=== PATIENT | female | born 1935 | race Caucasian/White ===

== ENCOUNTER 2016-09-18 16:46 | Inpatient (IN) ==
[2016-09-18] MEDS ORDERED: DILAUDID IV PRN (19:37)
[2016-09-18] MEDS ORDERED: NS 1,000 ML IV SCH (19:45)
[2016-09-18] MEDS ORDERED: LOVENOX SUBQ SCH (19:45)
--- NOTE | 2016-09-18 22:40 | HISTORY AND PHYSICAL ---
CHIEF COMPLAINT: Right upper quadrant pain since Saturday. Not able to the eat. HISTORY OF PRESENT ILLNESS: She is a 81-year-old white female who was seen in my office today with a 3-day history of above symptoms. Pain is right upper quadrant, nausea, low-grade fever, low blood pressure. Upon workup in my office, flat/upright of the abdomen with chest, normal chest, scoliosis towards right side, constipation. No free air under the diaphragm. LFTs, amylase, CBC were normal. Admitted to the hospital for impending dehydration, hypovolemia and rule out gallbladder disease. Patient is tender, but no signs of peritonitis, guarding or rigidity noted. As a result, a hospital admission was warranted. PAST MEDICAL HISTORY: CAD, status post bare metal stent circumflex artery, hypertension, hyperlipidemia, osteoporosis, acid reflux disease, rheumatoid arthritis, atrophic vaginitis, history of shingles in the right T4 dermatomal distribution. PAST SURGICAL HISTORY: Hysterectomy. Cardiac cath in 2013, stable. Hip replacement on the right side. MEDICATIONS: Hydrochlorothiazide 50 mg daily. Lasix as needed. Neurontin 300 daily. Norvasc 10 daily. Plavix 75 daily. Prednisone 5 daily. Prinivil 10 mg daily. Protonix 40 daily. Toprol 25 daily. Zocor 20 daily. Zyrtec 10 daily. ALLERGIES: Codeine, sulfa drugs. SOCIAL HISTORY: Single. . 3 children. Lives in [place]. No smoking. No alcohol. Retired from tool machine set up operator. FAMILY HISTORY: Father of leukemia at 48. Mom of [place] at 59. HEALTH MAINTENANCE: Flu vaccine 2009, pneumococcal vaccine 2009, mammography , DEXA scan 2008, colonoscopy 07/2016. REVIEW OF SYSTEMS: HEENT: No headache, no vision problem. No earache. No sore throat. Neck: No goiter. No lymphadenopathy. No bruit. Cardiopulmonary: No chest pain, shortness of breath, PND, orthopnea. GI: Right upper quadrant pain, nausea. Last BM Saturday. No bleeding per rectum. Recent colonoscopy by Dr. Holm, 2 polyps were taken out. : No history of hesitancy, frequency. No swelling of feet. No joint pains. Neurologic: No focal symptoms or weakness. PHYSICAL EXAMINATION: VITAL SIGNS: Fever in my office 101, tachycardic, blood pressure is 100/40, not able to walk, in wheelchair, 5 feet 2, 126 pounds. HEENT: Atraumatic, normocephalic. No anemia, no cyanosis. No jaundice. TMs are normal. NECK: Supple. No lymphadenopathy. No goiter. CHEST: Bilateral air entry. No rales, no wheezing. HEART: Sounds are regular. ABDOMEN: Belly is soft, nontender. Good bowel sounds. No masses palpable. No signs of guarding or rigidity in the right upper quadrant. RECTAL: Deferred. EXTREMITIES: No peripheral edema, cyanosis. NEUROLOGIC: No obvious neurological deficits. INVESTIGATIONS: CBC is normal. SMA7 is normal. LFTs were normal. Amylase is normal. Flat/upright of the abdomen, chest, no free air under the diaphragm. ASSESSMENT AND PLAN: 1. A 81-year-old white female, admitted to the hospital with right upper quadrant pain, nausea and vomiting suspicious for gallbladder disease. Will be NPO after midnight. Ultrasound of the abdomen. If it is negative, consider HIDA scan and followed by CT. 2. Coronary artery disease, with stent. Follow up on EKG and cardiac enzymes. 3. Prophylaxis with Lovenox and Protonix respectively. 4. Symptomatic treatment of nausea with Zofran and hydromorphone for pain. Continue IV fluids. Based on these tests, further recommendations will be followed. 5. We will slowly reconcile the home medicines once her gastrointestinal system gets better. cc: Rick Polanco MD MTDD
[2016-09-18] MEDS: ZOFRAN IV PRN (23:30)
[2016-09-18] MEDS: PROTONIX IV SCH (23:30)
[2016-09-18] MEDS: LEVAQUIN 500 MG/D5W 500 MG/100 ML IVPB IV SCH (23:31)
[2016-09-19 05:44] LABS: MANUAL DIFF NEEDED? NO
[2016-09-19 05:54] LABS: BASO% 0.1 % (0.0-0.8); EOS# 0.16 X1000 (0.0-0.7); HEMOGLOBIN 12.5 g/dL (12.0-16.0); LYMPH# 1.28 X1000 (1.2-3.4); LYMPH% 16.3 % (20.5-51.1); MCHC 33.8 g/dL (33-37); MCV 91.8 FL (81-99); MONO# 0.66 X1000 (0.11-0.59); MONO% 8.4 % (1.7-9.3); MPV 12.9 FL (7.4-10.4); NEUT% 73.2 % (42.2-75.2); PLT 84 X1000 (130-400); RBC 4.03 XMIL (4.2-5.4)
[2016-09-19 06:28] LABS: CALCIUM 8.4 mg/dL (8.8-10.2); TOTAL BILIRUBIN 0.48 mg/dL (0.20-1.00); TOTAL PROTEIN 6.3 g/dL (6.3-8.3)
--- NOTE | 2016-09-19 07:04 | EKG Report ---
Test Performed on : 09/19/2016 06:04:31 AM Test Reason : cp Blood Pressure : / mmHG Vent. Rate : 095 BPM Atrial Rate : 095 BPM P-R Int : 136 ms QRS Dur : 072 ms QT Int : 326 ms P-R-T Axes : 075 -41 060 degrees QTc Int : 409 ms Normal sinus rhythm. Left axis deviation Low voltage QRS Inferior infarct (cited on or before 24-SEP-2013) Cannot rule out Anterior infarct , age undetermined Abnormal ECG When compared with ECG of 24-SEP-2013 17:51, Vent. rate has increased BY 32 BPM Inverted T waves have replaced nonspecific T wave abnormality in Anterior leads T wave inversion in V1-V2-V3 is new - clinical correlation is recommended cannot r/o ischemia mediat ed Confirmed by Lonnie Contreras DO ([id number]) on 09/22/2016 7:52:49 PM
--- NOTE | 2016-09-19 08:17 | Diag Imaging Result Doc PS360 ---
US ABDOMEN-COMPLETE - 09/19/2016 INDICATION: Right upper quadrant pain COMPARISON: None FINDINGS: The gallbladder is clear. There is moderate fatty change of the liver. Common bile duct measures 4 mm. Sonographic Reese sign is negative. The pancreas, spleen, and both kidneys are normal. Aorta, IVC, and main portal vein are patent. IMPRESSION: Fatty liver. Clear gallbladder. Electronically signed by Christian Celis 09/19/2016 8:14 AM
--- NOTE | 2016-09-19 11:45 | Diag Imaging Result Doc PS360 ---
HIDA SCAN W/ EJECTION FRACTION - 09/19/2016 INDICATION: abdominal bloating COMPARISON: None FINDINGS: 5.4 millicuries of Choletec was administered. There is normal uptake and clearance by the liver. There is normal excretion into the gallbladder and small bowel. A fatty meal was given. The gallbladder ejection fraction is 5%. IMPRESSION: Severely subnormal gallbladder ejection fraction compatible with chronic cholecystitis. An abnormally low ejection fraction (less than 35%) can be present in patients without gallbladder dyskinesis or chronic cholelithiasis to have other medical conditions. These include but are not limited to, patients with diabetic mellitus, irritable bowel syndrome, , gastroenteritis. peptic ulcer disease, and patients receiving morphine or nifedipine. Electronically signed by Christian Celis 09/19/2016 11:42 AM
[2016-09-19] MEDS: ZOFRAN IV PRN ×2 (12:27→13:20)
[2016-09-19] MEDS ORDERED: DIPRIVAN 1% ONE (17:09)
[2016-09-19] MEDS ORDERED: XYLOCAINE-MPF 2% ONE (17:10)
[2016-09-19] MEDS ORDERED: LR 1,000 ML ONE (17:42)
[2016-09-19] MEDS ORDERED: SODIUM CHLORIDE 0.9% ONE (17:42)
[2016-09-19] MEDS ORDERED: SENSORCAINE 0.25%/EPI 1:200,000 ONE (17:42)
[2016-09-19] MEDS ORDERED: KETAMINE ONE (17:51)
[2016-09-19] MEDS ORDERED: OFIRMEV 1000 MG/ISOTONIC SOLN 1,000 MG/100 ML BOTTLE ONE (18:03)
[2016-09-19] MEDS ORDERED: NEOSTIGMINE ONE (18:22)
[2016-09-19] MEDS ORDERED: ROBINUL ONE (18:22)
[2016-09-19] MEDS ORDERED: MORPHINE ONE (18:52)
[2016-09-19] MEDS ORDERED: D5 1/2 NS 1,000 ML ONE (19:09)
[2016-09-19] MEDS ORDERED: ZOFRAN IV PRN (19:15)
[2016-09-19] MEDS ORDERED: ZOFRAN PO PRN (19:16)
[2016-09-19] MEDS: SODIUM CHLORIDE 0.9% INJ SCH (20:53)
[2016-09-19] MEDS: PROTONIX IV SCH (20:53)
[2016-09-19] MEDS: LEVAQUIN 500 MG/D5W 500 MG/100 ML IVPB IV SCH (20:53)
[2016-09-19] MEDS: PERIDEX MT SCH (20:54)
[2016-09-19] MEDS: D5 1/2 NS 1,000 ML IV SCH (20:54)
--- NOTE | 2016-09-19 22:45 | PROGRESS NOTE ---
DATE: 09/19/2016 SUBJECTIVE: Patient complains of right upper quadrant pain. Nausea slightly improved. REVIEW OF SYSTEMS: Upper abdominal pain, nausea, and no evidence of rashes noted. PHYSICAL EXAMINATION: Vital Signs: Temperature 102. Tachycardic. I's and O' s were even. HEENT: Within normal limits. Neck: Supple. Chest: Clear to auscultation. Heart: Sounds are regular. Abdomen: Belly is soft, slightly tender. No signs of peritonitis. No peripheral edema or cyanosis. No obvious neurological deficits. INVESTIGATIONS: CBC is normal. SMA 7 is normal. LFTs are normal. Cardiac enzymes are normal. ProBNP 4000. Amylase and lipase were normal. ASSESSMENT AND PLAN: 1. Right upper quadrant pain, fever, nausea, impending dehydration. Suspicious for gallbladder disease. Ultrasound is negative, Scheduled for a HIDA scan. 2. HIDA scan was reported abnormally low ejection fraction, suspicious for acalculous cholecystitis. Surgical consult. 3. Deep venous thrombosis prophylaxis with Lovenox. 4. Gastrointestinal prophylaxis with Protonix. 5. Continue IV antibiotics. 6. Discussed with the patient and the family members, as well as Dr. John Peguero. LEVEL OF DOCUMENTATION: 25 minutes. cc: Rick Polanco MD MTDD
[2016-09-19] MEDS: MORPHINE IV PRN (23:57)
--- NOTE | 2016-09-20 03:56 | OPERATIVE NOTE ---
PROCEDURE DATE: 09/19/2016 PREOPERATIVE DIAGNOSIS: Chronic cholecystitis with low HIDA scan, 5%. PROCEDURES: Laparoscopic cholecystectomy, attempted cholangiogram. PROCEDURE IN DETAIL: Patient brought to the operating room after satisfactory induction of IV and endotracheal anesthesia, athrombic TEDs were placed. Her abdomen was broadly prepped and draped in the appropriate manner for laparoscopy. Initially, the infraumbilical area was infiltrated with 0.25% Marcaine with epinephrine. Dissection was taken sharply down through skin and subcutaneous tissue. Fascia was tacked with 0 Surgilon and incised. Under direct visualization, a Mook trocar was placed. The abdomen was insufflated to 3.5 L of carbon dioxide. Again, after infiltration with Marcaine and epinephrine, one 10 and two 5 mm trocars were placed. The patient was repositioned. The gallbladder was seen to be flaccid and appeared to be necrotic. It was grasped and retracted superiorly. The hilar structures were dissected. The cystic duct was skeletonized, doubly clipped and divided. The cystic artery was skeletonized, doubly clipped and divided. Attempted cystic duct cholangiogram was unsuccessful secondary to the tiny size of the duct. The duct was subsequently doubly clipped and divided and the gallbladder was dissected from the liver bed with the use of the monopolar scissors. On completion, it was freed up, placed in an EndoCatch bag and removed. Reinspection of the liver bed revealed some tiny bleeding points that were controlled by electrocautery or Surgicel gauze. The subhepatic and subphrenic spaces were subsequently aspirated free of the small amount of bile and blood. All trocars were removed after abdominal deflation. The subumbilical incision underwent fascial closures of 0 Surgilon. All skin incisions were closed with subcuticular 4-0 Vicryl. Steri-Strips, Telfa, and OpSite were applied. The patient was awakened and extubated in the operating room and transferred to recovery. ESTIMATED BLOOD LOSS: Around 5 mL. cc: MD Rick Downey MD
[2016-09-20 06:09] LABS: MANUAL DIFF NEEDED? NO
--- NOTE | 2016-09-20 06:09 | EKG Report ---
Test Performed on : 09/20/2016 05:27:51 AM Test Reason : post op eval Blood Pressure : / mmHG Vent. Rate : 091 BPM Atrial Rate : 091 BPM P-R Int : 130 ms QRS Dur : 076 ms QT Int : 352 ms P-R-T Axes : 014 -48 080 degrees QTc Int : 432 ms Normal sinus rhythm. Left axis deviation Low voltage QRS Inferior infarct (cited on or before 24-SEP-2013) Possible Anterolateral infarct (cited on or before 24-SEP-2013) Abnormal ECG When compared with ECG of 19-SEP-2016 06:04, (Unconfirmed) Persistant anterior-septal T wave inversion - no change since 09/19/2016 Clinical Correlation advised Confirmed by Lonnie Contreras DO ([id number]) on 09/23/2016 9:54:53 AM
[2016-09-20] MEDS ORDERED: HYDROCHLOROTHIAZIDE PO PRN (06:29)
[2016-09-20] MEDS ORDERED: NITROGLYCERIN SL PRN (06:29)
[2016-09-20] MEDS ORDERED: NORCO-10 PO PRN (06:32)
[2016-09-20 06:34] LABS: BASO% 0.1 % (0.0-0.8); EOS# 0.14 X1000 (0.0-0.7); EOS% 2.1 % (0.0-10.0); HEMATOCRIT 36.7 % (37.0-47.0); HEMOGLOBIN 12.3 g/dL (12.0-16.0); IMM GRAN# 0.02 X1000 (0.0-0.04); IMM GRAN% 0.3 % (0.0-0.5); LYMPH# 1.12 X1000 (1.2-3.4); LYMPH% 16.8 % (20.5-51.1); MCH 30.8 PG (27-31); MCHC 33.5 g/dL (33-37); MONO% 7.5 % (1.7-9.3); MPV 12.8 FL (7.4-10.4); NEUT% 73.2 % (42.2-75.2); PLT 83 X1000 (130-400); RBC 3.99 XMIL (4.2-5.4)
[2016-09-20 06:47] LABS: ALBUMIN 3.1 g/dL (3.5-5.0); CALCIUM 7.9 mg/dL (8.8-10.2); POTASSIUM 3.5 mmol/L (3.5-5.1); TOTAL BILIRUBIN 0.51 mg/dL (0.20-1.00); TOTAL PROTEIN 6.3 g/dL (6.3-8.3)
[2016-09-20] MEDS ORDERED: TYLENOL PO PRN (08:54)
[2016-09-20] MEDS ORDERED: NORVASC PO SCH (09:00)
--- NOTE | 2016-09-20 09:44 | Diag Imaging Result Doc PS360 ---
EXAM: CHEST-PORTABLE HISTORY: post op temp TECHNIQUE: Portable upright AP COMPARISON: 10/28/2015 FINDINGS: Poor inspiratory effort. There are increased interstitial markings in the lung bases. The heart is not enlarged. The vessels are not distended. No pleural effusions identified. IMPRESSION: Increased interstitial markings in the lung bases believed to be atelectasis although there could be small underlying infiltrates. Electronically signed by Osbaldo Irizarry 09/20/2016 9:42 AM
[2016-09-20] MEDS: NORVASC PO SCH (09:49)
[2016-09-20] MEDS: THERA M PLUS PO SCH (09:49)
[2016-09-20] MEDS: KLOR-CON PO SCH ×2 (09:49→21:57)
[2016-09-20] MEDS: PRINIVIL PO SCH (09:49)
[2016-09-20] MEDS: NEURONTIN PO SCH ×3 (09:49→21:57)
[2016-09-20] MEDS: PLAVIX PO SCH (09:49)
[2016-09-20] MEDS: PROTONIX PO SCH (09:49)
[2016-09-20] MEDS: ZOCOR PO SCH (09:50)
[2016-09-20] MEDS: FOLIC ACID PO SCH (09:50)
[2016-09-20] MEDS: ANTIVERT PO SCH ×3 (09:50→22:00)
[2016-09-20] MEDS: PERIDEX MT SCH ×4 (09:51→22:04)
[2016-09-20] MEDS: LOVENOX SUBQ SCH (09:51)
[2016-09-20] MEDS: COLACE PO SCH ×2 (09:51→21:57)
[2016-09-20] MEDS: LOPRESSOR PO SCH ×2 (09:51→22:01)
[2016-09-20] MEDS: D5 1/2 NS 1,000 ML IV SCH (13:00)
[2016-09-20] MEDS: MORPHINE IV PRN (13:21)
--- NOTE | 2016-09-20 20:48 | PROGRESS NOTE ---
DATE: 09/20/2016 SUBJECTIVE: The patient has a lap gallbladder surgery by Dr. Peguero last night. Postoperative day 1, doing very well. Decrease in nausea and pain. REVIEW OF SYSTEMS: None reported. OBJECTIVE: Fever is 98. Vitals are stable. Input and output 680+.HEENT: Within normal limits. Neck: Supple. No lymphadenopathy. Chest: Clear. Heart: Sounds are regular. Abdomen: Belly is soft, nontender. Good bowel sounds. Neurologic: No obvious neurological deficits. INVESTIGATIONS: CBC is normal. SMA7 is normal. Creatinine 1. LFTs were normal. Chest x-ray was stable. ASSESSMENT: Postop day 1, due to acalculous cholecystitis with lap cholecystectomy. Doing very well. PLAN OF CARE: Out of bed. Liquid diet with Ensure. Incentive spirometry. Deep venous thrombosis prophylaxis with Lovenox. Continue on IV antibiotics with Levaquin. Discussed with the family at the bedside. If she is stable for next 24 hours, will be discharged tomorrow. LEVEL OF DOCUMENTATION: 25 minutes. cc: Rick Polanco MD
[2016-09-20] MEDS: LEVAQUIN 500 MG/D5W 500 MG/100 ML IVPB IV SCH (21:58)
[2016-09-20] MEDS: PROTONIX IV SCH (21:59)
[2016-09-21 00:36] LABS: URINE CULTURE NEEDED? NO; URINE SOURCE CATH
[2016-09-21 00:40] LABS: BILIRUBIN URINE NEGATIVE (NEGATIVE); BLOOD URINE NEGATIVE (NEGATIVE); COLOR YELLOW; GLUCOSE URINE 70 mg/dL (NEGATIVE); LEUKOCYTES URINE NEGATIVE (NEGATIVE); NITRITE URINE NEGATIVE (NEGATIVE); PH URINE 5.5; PROTEIN URINE 50 mg/dL (NEGATIVE); TURBIDITY URINE CLEAR (CLEAR); URINE MICRO REVIEW NEEDED? YES; UROBILINOGEN URINE NORMAL (NORMAL)
[2016-09-21 00:41] LABS: UR EPITHELIAL CELLS <10 /HPF (<10); URINE BACTERIA NEGATIVE /HPF; URINE RBC <10 /HPF (<10); URINE WBC <10 /HPF (<10)
[2016-09-21 00:59] LABS: URINE CASTS NONE SEEN
[2016-09-21] MEDS: D5 1/2 NS 1,000 ML IV SCH (03:57)
[2016-09-21 05:59] LABS: MANUAL DIFF NEEDED? NO
[2016-09-21 06:14] LABS: BASO% 0.2 % (0.0-0.8); EOS# 0.16 X1000 (0.0-0.7); EOS% 2.6 % (0.0-10.0); HEMATOCRIT 31.9 % (37.0-47.0); HEMOGLOBIN 10.8 g/dL (12.0-16.0); LYMPH# 1.37 X1000 (1.2-3.4); LYMPH% 22.1 % (20.5-51.1); MCH 31.2 PG (27-31); MCHC 33.9 g/dL (33-37); MCV 92.2 FL (81-99); MONO# 0.38 X1000 (0.11-0.59); MONO% 6.1 % (1.7-9.3); MPV 13.1 FL (7.4-10.4); PLT 82 X1000 (130-400); RBC 3.46 XMIL (4.2-5.4)
[2016-09-21] MEDS: THERA M PLUS PO SCH (08:50)
[2016-09-21] MEDS: LOPRESSOR PO SCH ×4 (08:50→21:38)
[2016-09-21] MEDS: NEURONTIN PO SCH ×3 (08:50→21:38)
[2016-09-21] MEDS: COLACE PO SCH ×2 (08:50→21:38)
[2016-09-21] MEDS: ANTIVERT PO SCH ×3 (08:50→21:38)
[2016-09-21] MEDS: PLAVIX PO SCH (08:50)
[2016-09-21] MEDS: ZOCOR PO SCH (08:50)
[2016-09-21] MEDS: NORVASC PO SCH (08:50)
[2016-09-21] MEDS: KLOR-CON PO SCH ×2 (08:50→21:38)
[2016-09-21] MEDS: LOVENOX SUBQ SCH (08:51)
[2016-09-21] MEDS: PRINIVIL PO SCH (08:51)
[2016-09-21] MEDS: FOLIC ACID PO SCH (08:51)
[2016-09-21] MEDS ORDERED: PREDNISONE PO SCH (09:00)
[2016-09-21] MEDS: PROTONIX PO SCH (16:40)
--- NOTE | 2016-09-21 18:53 | PROGRESS NOTE ---
DATE: 09/21/2016 SUBJECTIVE: The patient is getting better, slowly eating well. REVIEW OF SYSTEMS: None reported. EXAMINATION: Fever 100.2 degrees, blood pressure is 90/40.HEENT: Within normal limits. Neck: Supple. Chest: Clear. Heart: Sounds are regular. Abdomen: Belly is soft, nontender. Good bowel sounds. Neurologic: No obvious neurological deficits. INVESTIGATIONS: CBC, white cell count 6.8, hematocrit 32, platelet 82,000. ASSESSMENT AND PLAN: 1. Status post laparoscopic cholecystectomy. Still low-grade fever. Continue on IV antibiotics. Plan of care today out of the bed. Advance the diet, discontinue IV fluids. 1. Continue present medical therapy with physical therapy. If she is stable, will be discharged in the morning. Level of documentation 15 minutes. cc: Rick Polanco MD
[2016-09-21] MEDS: LEVAQUIN 500 MG/D5W 500 MG/100 ML IVPB IV SCH (21:37)
[2016-09-21] MEDS: PROTONIX IV SCH (21:38)
[2016-09-21] MEDS: SODIUM CHLORIDE 0.9% INJ SCH (21:38)
[2016-09-21] MEDS ORDERED: LEVAQUIN PO ONE (23:45)
[2016-09-22] MEDS: LEVAQUIN 500 MG/D5W 500 MG/100 ML IVPB IV SCH (00:40)
[2016-09-22] MEDS: PRINIVIL PO SCH (08:45)
[2016-09-22] MEDS: FOLIC ACID PO SCH (08:45)
[2016-09-22] MEDS: KLOR-CON PO SCH (08:45)
[2016-09-22] MEDS: PROTONIX PO SCH (08:45)
[2016-09-22] MEDS: LOVENOX SUBQ SCH (08:46)
[2016-09-22] MEDS: LOPRESSOR PO SCH (08:46)
[2016-09-22] MEDS: NEURONTIN PO SCH (08:46)
[2016-09-22] MEDS: PLAVIX PO SCH (08:46)
[2016-09-22] MEDS: ZOCOR PO SCH (08:46)
[2016-09-22] MEDS: ANTIVERT PO SCH (08:46)
[2016-09-22] MEDS: NORVASC PO SCH (08:46)
[2016-09-22] MEDS: THERA M PLUS PO SCH (08:46)
[2016-09-22] MEDS: COLACE PO SCH (08:46)
[2016-09-22 11:41] VITALS: BP 104/47
[2016-09-22] MEDS ORDERED: LEVAQUIN PO SCH (21:00)
--- NOTE | 2016-09-22 22:30 | DISCHARGE SUMMARY ---
ADMISSION DATE: 09/18/2016 DISCHARGE DATE: 09/22/2016 DISCHARGING DIAGNOSIS: Right upper quadrant pain due to acalculous cholecystitis ejection fraction 5%. SECONDARY DIAGNOSIS: 1. Coronary artery disease status post bare metal stent in the circumflex artery. 2. Hypertension. 3. Hyperlipidemia. 4. Osteoporosis. 5. Acid reflux disease. 6. Rheumatoid arthritis. 7. Atrophic vaginitis. CONSULTS: Dr. John Peguero. PROCEDURES: Laparoscopic cholecystectomy. RADIOLOGY PROCEDURES: HIDA scan which is EF is less than 5%, abdominal ultrasound fatty liver, clear gallbladder. BRIEF HISTORY: Please see the H and P that was done on 09/18/2016. In brief she is a 81-year-old white female, was admitted to the hospital with nausea, vomiting, abdominal pain right upper quadrant since Saturday. She also running fever. Clinical symptoms consistent with gallbladder disease. HOSPITAL COURSE: She was given IV Levaquin, IV fluids and symptomatic treatment Zofran for nausea and Dilaudid for pain. On the following day the workup was consistent with acalculous cholecystitis. Dr. Peguero did laparoscopic cholecystectomy. Postoperative course was uneventful except low-grade fever and deconditioning. The patient started eating very well, able to ambulate very well. LABS: The time of discharge CBC. White cell count 6.2, hematocrit 32, platelets 82,000. SMA 7, LFTs were normal. Urine cultures were negative. Patient was discharged home in a stable condition with the following instructions. 1. Lisinopril 10 mg daily. 2. Plavix 75 daily. 3. Amlodipine 10 daily. 4. Simvastatin 20 daily. 5. Protonix 40 daily. 6. Gabapentin 300 t.i.d. 7. Folic acid 1 mg daily. 8. Actonel 150 once a month. 9. Ultracet 1 tablet q.6 as needed for pain. 10. Multivitamin 1 tablet daily. 11. Metoprolol 25 p.o. b.i.d. 12. Nitroglycerin as needed. 13. Hold the Lasix and hydrochlorothiazide until her symptoms improves. 14. Colace 100 mg p.o. b.i.d. 15. Prednisone 5 mg daily for underlying rheumatoid arthritis. 16. Follow up in my office next week as well as Dr. John Peguero. cc: Rick Polanco MD
[2016-09-24] MEDS ORDERED: ACTONEL PO SCH (09:00)
== END 2016-09-22 14:09 | disposition home or self-care (01) ==
LOC: DIRADM 16:46 → 4N 17:12
PROVIDERS: ADMIT Internal Medicine; ATTEND Internal Medicine

== ENCOUNTER 2018-03-01 13:09 | Inpatient (IN) ==
[2018-03-01] MEDS ORDERED: CALCIUM GLUCONATE 1 GM in NS 50 ML IV ONE (13:53)
[2018-03-01] MEDS ORDERED: ZOFRAN IV PRN (13:54)
[2018-03-01] MEDS ORDERED: KAYEXALATE PO ONE (13:54)
[2018-03-01] MEDS ORDERED: SODIUM CHLORIDE 0.9% INJ SCH (14:00)
[2018-03-01] MEDS: NS 1,000 ML IV SCH (14:35)
[2018-03-01] MEDS ORDERED: HUMALOG SUBQ ONE (14:40)
[2018-03-01] MEDS ORDERED: D50W SYRINGE IV ONE (14:40)
[2018-03-01] MEDS ORDERED: ALBUTEROL 0.5% INH CONC FOR HYPERKALEMIA INH ONE (14:46)
[2018-03-01] MEDS: PROTONIX IV SCH (14:53)
[2018-03-01 15:18] LABS: URINE SOURCE CLEAN CATCH
[2018-03-01 15:22] LABS: BILIRUBIN URINE NEGATIVE (NEGATIVE); BLOOD URINE NEGATIVE (NEGATIVE); COLOR YELLOW; GLUCOSE URINE NEGATIVE (NEGATIVE); KETONE URINE NEGATIVE (NEGATIVE); LEUKOCYTES URINE TRACE (NEGATIVE); NITRITE URINE NEGATIVE (NEGATIVE); PH URINE 5.5; PROTEIN URINE TRACE mg/dL (NEGATIVE); SP GRAVITY URINE 1.016; TURBIDITY URINE HAZY (CLEAR); UROBILINOGEN URINE NORMAL (NORMAL)
[2018-03-01 15:27] LABS: UR EPITHELIAL CELLS >10 /HPF (<10); URINE BACTERIA NEGATIVE /HPF; URINE RBC <10 /HPF (<10)
[2018-03-01 15:43] LABS: URINE CASTS NONE SEEN; URINE CRYSTALS NONE SEEN; URINE SMALL ROUND CELLS NONE SEEN; URINE YEAST NONE SEEN
[2018-03-01] MEDS: HUMULIN R SUBQ SCH ×2 (17:29→21:50)
[2018-03-01 18:42] LABS: CALCIUM 8.1 mg/dL (8.8-10.2); CREATININE 4.8 mg/dL (0.5-0.9); POTASSIUM 5.8 mmol/L (3.5-5.1)
--- NOTE | 2018-03-01 19:59 | CARDIOLOGY CONSULTATION ---
DATE: 03/01/2018 CHIEF COMPLAINT ON PRESENTATION: Was nausea, vomiting, lab abnormalities. HISTORY OF PRESENT ILLNESS: Ms Weldon is 83-year-old female who normally sees Dr. Green and has a history of PCI, myocardial infarction, hypertension. She apparently has been experiencing some bouts of nausea and vomiting over the last few days. It has been treated as an outpatient with antiemetics. She presented to the outpatient clinic today and had some laboratories drawn and had a elevation in her creatinine as well as a potassium above 7. She was referred for admission. The patient currently does not have any pain complaints, lightheadedness or dizziness. She is sitting in bed mentating well and has again no complaints. PAST MEDICAL HISTORY: 1. Significant for coronary disease with previous PCI. Her last cardiac catheterization was performed in September 2013. On that study she had a normal left main. Left anterior descending had mild disease of around 20% in the proximal vessel. Ramus vessel appears normal. Circumflex is nondominant, there is a 40% in stent stenosis in the distal circumflex. The right coronary was dominant, plaque in the ostium around 20%, additional 30% plaque in the middle 3rd. Left ventriculogram on that study showed an EF of 60%. She had a nuclear scan done in 2018 showing a fixed defect with mild gregoria-infarct ischemia in the basal inferior lateral. Ejection fraction on that study was 89%. 2. Bradycardia. 3. Hyperlipidemia. 4. Hypertension. 5. Rheumatoid arthritis. SOCIAL HISTORY: No current tobacco use. FAMILY HISTORY: Hypertension. REVIEW OF SYSTEMS: A 10 system review of systems is negative except for those things mentioned in HPI. PHYSICAL EXAMINATION: The patient is afebrile. Her heart rates currently are in the 30s to 40s. Her O2 saturation is 100%.General: She is in no acute distress. She is very pleasant. She is conversing easily. HEENT: Oropharynx is moist. She has poor dentition. Her eye examination shows pink conjunctivae. White sclerae. Neck: Shows no obvious thyromegaly or thyroid tenderness. Cardiovascular: She sounds to be in a bradycardic and regular rhythm. Somewhat distant heart sounds. She has no lower extremity edema. She has somewhat cool distal extremities. Her chest exam sounds clear. She has no increased work of breathing. Abdomen: Soft, nontender, nondistended. She has no obvious organomegaly. Skin: Warm and dry throughout without any rashes. Neurological: She is moving all extremities well. She has no lateralizing deficits. Psychiatric: She is alert, oriented, pleasant. She has normal mood and affect. PERTINENT DATA: Her EKG reviewed by me shows a junctional rhythm in the 30s. She has no laboratory data back as of yet. She has no chest x-ray. ASSESSMENT: Ms. Weldon is 83-year-old female who presented with volume depletion, acute kidney injury and hyperkalemia and was found to be in a junctional bradycardia. PLAN: We will acutely treat her hyperkalemia. She has already been administered calcium gluconate, D50, insulin and nebulizers. She has been administered Kayexalate as well. She has had a slight increase in her rate with these administrations to around the 40s to 50s. Presently we will likely check laboratories including a chemistry in the morning as well as a TSH. I will refer her for an echocardiogram in the morning as well. cc: MD Rick Moura MD
--- NOTE | 2018-03-01 21:11 | HISTORY AND PHYSICAL ---
CHIEF COMPLAINT: Nausea, near syncope, abnormal electrolytes. HPI: She is an 83-year-old white female was seen in the walk-in clinic this afternoon with above symptoms. She had nausea was given Zofran. It was started off eating food in [place]. She is not eating very well. She continues to take her home medications. After workup heart rate is 33, EKG showed junctional bradycardia and potassium 7.38. She was admitted directly from [facility] to my 3rd floor. I was with the patient for more than 70 minutes at bedside. The patient was also assisted by Dr. Santhosh Contreras. She was started IV fluids, calcium gluconate was given, Kayexalate was given, D50 followed by 10 units of regular insulin was given, albuterol was given. After that heart rate went up to 100 and followup potassium was 5.4. Silva was placed. Coordinated care with all the nurses was excellent at bedside. Family was also there. As a result, a hospital admission was warranted. Upon questioning patient denies of any diarrhea, vomiting. PAST MEDICAL HISTORY: CAD with bare metal stent circumflex artery and LAD, hyperlipidemia, osteoporosis, acid reflux disease, rheumatoid arthritis, atrophic vaginitis, history of shingles in the right T4 dermatomal distribution, breast cancer on the left side. PAST SURGICAL HISTORY: Hysterectomy, cardiac catheterization in 2013, hip placement on the right side, cholecystectomy, left breast mastectomy. ALLERGIES: Codeine and sulfa. SOCIAL HISTORY: Single 3 children. Lives in [place]. No smoking, no alcohol. Retired assembly machine feeder. FAMILY HISTORY: Father of leukemia at 48, mom of [place] at 59. HEALTH MAINTENANCE: Flu vaccine 2017, last mammograph 2017, DEXA scan 2018, colonoscopy July 2016. MEDICATIONS: Lisinopril 10 daily, amlodipine 10 daily, Protonix 40 daily, gabapentin 300 t.i.d., folic acid 1 mg daily, prednisone 5 mg as needed, Ultracet 1 tablet t.i.d., metoprolol 25 p.o. b.i.d., Nitrostat as needed, potassium 20 mEq p.o. b.i.d., Actonel 150 once a month, calcium with vitamin D daily, fenofibrate 160 daily, multivitamin 1 tablet daily, Lipitor 40 daily, folic acid 1 mg daily, Anastrazole 1 mg daily. REVIEW OF SYSTEMS: HEENT: No headache, slightly dizziness, no vision problem, no earache. No sore throat. Neck: No neck pain, no goiter, no lymphadenopathy. Cardiopulmonary: No chest pain, no shortness of breath, PND, orthopnea. GI: Nausea, no vomiting, no altered bowel habits. No bleeding per rectum. : No history of hesitancy, frequency, dysuria. Silva was placed. No swelling of feet. History of joint pains with rheumatoid arthritis stable . Neurological: No neurological symptoms or weakness or seizures. EXAMINATION: Temperature is 93.3, initial 36, vitals are stable 5 feet 1, 130 pounds.HEENT: Atraumatic, normocephalic. Pupils equal, reactive to light. TMs are normal. Nose and throat within normal limits. Neck: Supple. No lymphadenopathy. No goiter. Chest: Bilateral air entry. Heart: Sounds are very bradycardic distant. Belly: Soft, nontender, good bowel sounds. No peripheral edema, cyanosis. No obvious neurological deficits. INVESTIGATION: CBC normal. SMA 7 showed potassium 7.4 and BUN is 47, creatinine 4.6. EKG junctional bradycardia. ASSESSMENT AND PLAN: 1. 83-year-old white female with existing heart disease on beta blockers came in with nausea with acute kidney injury associated with hyperkalemia causing junctional bradycardia. Continue on bus monitor. Resuscitation is given with calcium gluconate, Kayexalate, D50 followed by insulin and beta 2 agonist follow up are getting better. 2. Cardiology consult and tomorrow EKG and echocardiography and TSH and continue IV fluids and will hold the home medications. Will slowly reconcile, appreciated Dr. Contreras is at bedside and will follow up. cc: Rick Polanco MD [facility]
[2018-03-02] MEDS: NS 1,000 ML IV SCH ×2 (02:42→16:38)
[2018-03-02] MEDS: HUMULIN R SUBQ SCH ×4 (06:00→20:44)
[2018-03-02] MEDS ORDERED: D50W SYRINGE ONE (06:03)
[2018-03-02 07:27] LABS: BASO# 0.03 X1000 (0.0-0.2); BASO% 0.6 % (0.0-0.8); EOS# 0.04 X1000 (0.0-0.7); EOS% 0.8 % (0.0-10.0); HEMATOCRIT 35.7 % (37.0-47.0); HEMOGLOBIN 11.1 g/dL (12.0-16.0); IMM GRAN# 0.02 X1000 (0.0-0.04); IMM GRAN% 0.4 % (0.0-0.5); LYMPH# 1.41 X1000 (1.2-3.4); LYMPH% 28.5 % (20.5-51.1); MCH 30.6 PG (27-31); MCHC 31.1 g/dL (33-37); MCV 98.3 FL (81-99); MONO# 0.39 X1000 (0.11-0.59); MONO% 7.9 % (1.7-9.3); MPV 12.8 FL (7.4-10.4); NEUT# 3.05 X1000 (1.4-6.5); NEUT% 61.8 % (42.2-75.2); PLT 123 X1000 (130-400); RBC 3.63 XMIL (4.2-5.4); RDW 14.5 % (11.5-14.5); WBC 4.94 X1000 (4.8-10.8)
[2018-03-02 07:45] LABS: CALCIUM 7.7 mg/dL (8.8-10.2); CREATININE 3.4 mg/dL (0.5-0.9); POTASSIUM 5.5 mmol/L (3.5-5.1)
[2018-03-02 08:34] LABS: LYMPHS 34 % (21-51); MONO 8 % (1-9); SEGS 58 % (42-75)
[2018-03-02] MEDS: PROTONIX IV SCH (13:08)
--- NOTE | 2018-03-02 16:37 | PROGRESS NOTE ---
DATE: 03/02/2018 SUBJECTIVE: The patient is a little better. Apparently, she had nausea, vomiting, and diarrhea after eating the food. PHYSICAL EXAMINATION: Temperature is 94 degrees, pulse is 50, blood pressure is stable. HEENT: Within normal limits. Neck: Supple. Chest: Clear. Heart: Sounds are regular. Abdomen: Belly is soft, nontender. Extremities: No peripheral edema. INVESTIGATIONS: CBC: White cell count 4.9, hematocrit 35, platelets 123,000. SMA-7: Sodium 137, potassium 5.5, BUN 61, creatinine 3.4, glucose 69. Urine cultures are negative. ASSESSMENT AND PLAN: 1. Hyperkalemia, better. 2. Junctional bradycardia, better. 3. Azotemia and acute kidney injury due to dehydration. Continue IV fluids. Advance the GI soft diet. Follow up on daily, and slowly reconcile home medications. LEVEL OF DOCUMENTATION: 25 minutes. cc: Rick Polanco MD
--- NOTE | 2018-03-02 18:47 | CARDIOLOGY PROGRESS NOTE ---
DATE: 03/02/2018 SUBJECTIVE: Ms Weldon reports no trouble today. She has had some minimal nausea but is tolerating a liquid diet. She has no lightheadedness, no dizziness. PHYSICAL: She is afebrile, heart rates since 4 a.m. this morning have been in the 50s to 60s, her blood pressure is 132/59. Telemetry currently shows sinus rhythm at 70 beats per minute.Cardiovascular: She sounds to be in a regular rate and rhythm. She has no obvious murmurs. She has no S3. She has no lower extremity edema. Chest: Clear bilaterally. No increased work of breathing. Abdomen: Soft, nontender. PERTINENT DATA: Her sodium is 137, potassium 5.5, BUN 61, creatinine 3.4 which is down from 75 and 4.8 yesterday. ASSESSMENT: Ms. Weldon is 83-year-old female who presented with nausea and vomiting yesterday as well as acute kidney injury, hyperkalemia and subsequent junctional bradycardia. PLAN: Her arrhythmia yesterday seems to be hyperkalemia induced and has resolved with improvement in her renal function and reduction in her potassium. Presently I do not have any acute recommendations. Her TSH is normal. Please contact us if we can be of further assistance. cc: MD Rick Moura MD
--- NOTE | 2018-03-02 19:59 | ECHO REPORT ---
ORDER DATE: 03/02/2018 ECHOCARDIOGRAM: INDICATION: 1. Bradycardia. 2. Acute kidney injury. FINDINGS: 1. Right atrium appears normal in size. 2. Mild tricuspid regurgitation. RV systolic pressure of 43. 3. Normal RV size and systolic function. 4. Mild pulmonic insufficiency. 5. Normal left atrial size at 3.6 cm. 6. No mitral valve prolapse. Mild mitral regurgitation. 7. Normal LV size, end-diastolic dimension of 4.7. Normal wall thicknesses with a posterior and interventricular septal wall thickness of 0.7 cm each. Normal LV systolic function. Estimated EF of 60% with normal wall motion. 8. Aortic valve opens well, appears trileaflet. No evidence of stenosis or insufficiency. 9. Aorta appears normal in visualized segments. 10. No pericardial effusion seen. 11. Patient appears to be in sinus rhythm with the majority of the heart rates in the 70s during this study. cc: MD Rick Moura MD
[2018-03-03] MEDS: NS 1,000 ML IV SCH ×2 (03:15→16:54)
[2018-03-03 05:11] LABS: BASO# 0.01 X1000 (0.0-0.2); BASO% 0.2 % (0.0-0.8); EOS# 0.15 X1000 (0.0-0.7); EOS% 3.5 % (0.0-10.0); HEMOGLOBIN 10.3 g/dL (12.0-16.0); LYMPH# 1.11 X1000 (1.2-3.4); LYMPH% 26.2 % (20.5-51.1); MCH 30.3 PG (27-31); MCHC 32.2 g/dL (33-37); MCV 94.1 FL (81-99); MONO# 0.42 X1000 (0.11-0.59); MONO% 9.9 % (1.7-9.3); MPV 11.8 FL (7.4-10.4); NEUT# 2.55 X1000 (1.4-6.5); NEUT% 60.2 % (42.2-75.2); PLT 170 X1000 (130-400); RDW 14.3 % (11.5-14.5); WBC 4.24 X1000 (4.8-10.8)
[2018-03-03 05:40] LABS: CREATININE 1.7 mg/dL (0.5-0.9); POTASSIUM 4.7 mmol/L (3.5-5.1)
[2018-03-03] MEDS ORDERED: CARDIZEM 100 MG in NS 80 ML IV SCH (06:15)
[2018-03-03] MEDS: HUMULIN R SUBQ SCH ×4 (06:26→22:11)
--- NOTE | 2018-03-03 07:12 | EKG Report ---
Test Performed on : 03/03/2018 04:02:36 AM Test Reason : HR 150s-170s, poss. afib Blood Pressure : / mmHG Vent. Rate : 149 BPM Atrial Rate : 170 BPM P-R Int : 000 ms QRS Dur : 072 ms QT Int : 276 ms P-R-T Axes : 000 -33 102 degrees QTc Int : 434 ms Atrial fibrillation. with rapid ventricular response. Left axis deviation Low voltage QRS Inferior-posterior infarct (cited on or before 01-MAR-2018) ST & T wave abnormality, consider lateral ischemia Abnormal ECG When compared with ECG of 01-MAR-2018 14:29, (Unconfirmed) junctional bradycardia has been replaced by atrial fibrillation with RVR Confirmed by Femi GONZALEZ, Armando Morales ([id number]) on 03/03/2018 11:48:03 AM
--- NOTE | 2018-03-03 07:12 | EKG Report ---
Test Performed on : 03/01/2018 2:29:30 PM Test Reason : chest pain Blood Pressure : / mmHG Vent. Rate : 033 BPM Atrial Rate : 032 BPM P-R Int : 000 ms QRS Dur : 100 ms QT Int : 488 ms P-R-T Axes : 000 -54 013 degrees QTc Int : 361 ms Junctional bradycardia. Left axis deviation Low voltage QRS Inferior infarct , age undetermined Possible Anterolateral infarct , age undetermined Abnormal ECG When compared with ECG of 02-AUG-2017 16:57, Significant changes have occurred Confirmed by Femi GONZALEZ, Armando Morales ([id number]) on 03/03/2018 11:21:37 AM
[2018-03-03] MEDS: VITAMIN D PO SCH (08:25)
[2018-03-03] MEDS: CALTRATE 600 PO SCH (08:25)
[2018-03-03] MEDS: CULTURELLE PO SCH (08:25)
[2018-03-03] MEDS: FOLIC ACID PO SCH (08:25)
[2018-03-03] MEDS: LOPRESSOR PO SCH ×2 (14:30→20:55)
[2018-03-03] MEDS: ULTRACET 37.5MG/325MG PO PRN ×2 (14:30→20:10)
[2018-03-03] MEDS ORDERED: BLISTEX MEDICATED BERRY LIP BALM TOP PRN (14:31)
--- NOTE | 2018-03-03 15:47 | CARDIOLOGY PROGRESS NOTE ---
DATE: 03/03/2018 SUBJECTIVE: Ms Weldon had a bout of atrial fibrillation that is new onset yesterday. She continues to be in that. Rate is somewhat erratic during my evaluation. Heart rates were in the 90s to low 100s. PHYSICAL: The patient is afebrile. Her heart rate presently during my exam is in the 90s to low 100s and appeared to be atrial fibrillation. Blood pressure 129/55.General: No acute distress. Cardiovascular: Is in a irregularly irregular rhythm. No murmurs. No S3. No lower extremity edema. Chest: Sounded relatively clear to auscultation bilaterally. No increased work of breathing. Abdomen: Soft, nontender. PERTINENT DATA: Sodium 141, potassium 4.7, BUN 29, creatinine 1.7, all of which have improved significantly from yesterday. Her TSH was normal on the . White count 4.2, hematocrit 32, platelet count is 170,000. ASSESSMENT: Ms Weldon is 83-year-old female who initially presented with acute kidney injury, hyperkalemia and a junctional bradycardia that was likely all induced via severe nausea, vomiting and volume depletion. She since has developed rapid atrial fibrillation. PLAN: I will initiate metoprolol at 25 p.o. q.6 hours. We will try to wean the diltiazem. If she maintains atrial fibrillation tomorrow we will consider cardioversion. I have ordered Ultracet per her home medications for pain as well as some guaifenesin to assist with her cough that she is experiencing. cc: MD Rick Moura MD
[2018-03-03] MEDS: PROTONIX IV SCH (16:54)
--- NOTE | 2018-03-03 16:55 | EKG Report ---
Test Performed on : 03/03/2018 4:43:16 PM Test Reason : Converting to SR Blood Pressure : / mmHG Vent. Rate : 053 BPM Atrial Rate : 053 BPM P-R Int : 178 ms QRS Dur : 076 ms QT Int : 408 ms P-R-T Axes : 051 -21 058 degrees QTc Int : 382 ms Sinus bradycardia. Low voltage QRS Inferior infarct (cited on or before 01-MAR-2018) Abnormal ECG When compared with ECG of 03-MAR-2018 04:02, Sinus rhythm. has replaced Atrial fibrillation. Vent. rate has decreased BY [address] no longer depressed in Anterolateral leads T wave inversion less evident in Anterolateral leads Asymetric T wave inversion V2 persists, new since 02-Aug-2017 Confirmed by Femi GONZALEZ, Armando Morales ([id number]) on 03/04/2018 5:48:05 PM
--- NOTE | 2018-03-03 19:12 | PROGRESS NOTE ---
DATE: 03/03/2018 SUBJECTIVE: The patient has been in rapid atrial fibrillation. Transferred out of the 3rd floor to the step-down on IV Cardizem drip. Around the noon time, patient converted to sinus with 3 episodes of 5.4 sinus pauses noted. Slowly, she is improving in terms of gastroenteritis symptoms. PHYSICAL EXAMINATION: Vital Signs: Temperature is 98, pulse is 82, blood pressure is 135/61, 2 L nasal cannula. Chest: Clear. Heart: Sounds are regular. Abdomen: Belly is soft, nontender. Extremities: No peripheral edema. INVESTIGATIONS: CBC: White cell count 4.2, hematocrit 32, platelet 170. SMA-7: Sodium 140, potassium 4.7, BUN 29, creatinine 1.7. TSH is normal. Urine cultures were negative. ASSESSMENT AND PLAN: 1. Gastroenteritis is better. 2. Prerenal azotemia, improving. 3. Hyperkalemia, better. 4. Coronary artery disease now presenting with sick sinus syndrome. 5. Tachy-chelsey syndrome. Currently atrial fibrillation on Cardizem drip followed by sinus pauses x3. Will discuss with rotary furnace operator. Once renal functions comes back to normal, we will slowly restart her medicines and will follow up. LEVEL OF DOCUMENTATION: 25 minutes. cc: Rick Polanco MD
[2018-03-03] MEDS: MUCINEX PO SCH (20:55)
[2018-03-04] MEDS: LOPRESSOR PO SCH ×3 (01:35→21:27)
[2018-03-04] MEDS: NS 1,000 ML IV SCH ×2 (05:05→09:02)
[2018-03-04 05:59] LABS: BASO# 0.01 X1000 (0.0-0.2); BASO% 0.2 % (0.0-0.8); EOS% 4.6 % (0.0-10.0); HEMATOCRIT 33.8 % (37.0-47.0); HEMOGLOBIN 10.7 g/dL (12.0-16.0); IMM GRAN# 0.02 X1000 (0.0-0.04); IMM GRAN% 0.5 % (0.0-0.5); LYMPH# 1.27 X1000 (1.2-3.4); LYMPH% 29.1 % (20.5-51.1); MCH 30.4 PG (27-31); MCHC 31.7 g/dL (33-37); MONO% 11.4 % (1.7-9.3); MPV 11.9 FL (7.4-10.4); NEUT# 2.37 X1000 (1.4-6.5); NEUT% 54.2 % (42.2-75.2); PLT 195 X1000 (130-400); RBC 3.52 XMIL (4.2-5.4); RDW 14.5 % (11.5-14.5); WBC 4.37 X1000 (4.8-10.8)
[2018-03-04 06:14] LABS: CALCIUM 8.4 mg/dL (8.8-10.2); CREATININE 1.2 mg/dL (0.5-0.9); POTASSIUM 4.6 mmol/L (3.5-5.1)
--- NOTE | 2018-03-04 08:24 | CARDIOLOGY PROGRESS NOTE ---
DATE: 03/04/2018 SUBJECTIVE: Ms. Weldon reports no issues overnight. She had no issues with lightheadedness, dizziness, or syncope. She did convert into sinus rhythm yesterday afternoon around 4:30 and had a 6 second asymptomatic pause. PHYSICAL EXAMINATION: Vital Signs: The patient is afebrile. Her heart rates per telemetry appear to be controlled roughly in the 60s overnight. Her blood pressure this morning is 168/66. General: She is in no acute distress. Cardiovascular: She is in a relatively bradycardic rate. At the time of my examination, it is in the 50s to 60s. She is in sinus. She has no lower extremity edema. No murmurs. Chest Examination: Clear bilaterally. She has no increased work of breathing. Abdomen: Soft, nontender. Pertinent Data: Her white count is 4.4, hematocrit is 33, platelet count is 195 ,000. Sodium 142, potassium is 4.6, BUN 21 and creatinine is 1.2 which are down from 29 and 1.7. ASSESSMENT: Ms. Weldon is an 83-year-old female who presented in acute kidney injury with hyperkalemia. She had a junctional bradycardia secondary to this. She since has had resolution of her kidney issues. She converted into atrial fibrillation and then subsequently converted into sinus rhythm with a 6 second pause on the conversion. PLAN: We have a call into the bottle hop, awaiting a discussion on a potential pacemaker. I have reduced her metoprolol to 25 b.i.d. We have initiated apixaban at a dose of 2.5. b.i.d. ADDENDUM: After discussion with the EP service we will plan on an outpatient 30 day cardiac event detector and reduction of her dose of metoprolol to 12.5mg BID. cc: MD Rick Moura MD MTDD
[2018-03-04] MEDS: HUMULIN R SUBQ SCH ×4 (08:54→21:26)
[2018-03-04] MEDS: CALTRATE 600 PO SCH (08:56)
[2018-03-04] MEDS: MUCINEX PO SCH ×2 (08:56→21:26)
[2018-03-04] MEDS: VITAMIN D PO SCH (08:56)
[2018-03-04] MEDS: ELIQUIS PO SCH ×2 (08:56→21:26)
[2018-03-04] MEDS: CULTURELLE PO SCH (08:56)
[2018-03-04] MEDS: FOLIC ACID PO SCH (08:56)
[2018-03-04] MEDS ORDERED: LOPRESSOR PO SCH (09:00)
[2018-03-04] MEDS: PROTONIX IV SCH (15:50)
[2018-03-04] MEDS: ULTRACET 37.5MG/325MG PO SCH (21:26)
--- NOTE | 2018-03-04 23:55 | PROGRESS NOTE ---
DATE: 03/04/2018 SUBJECTIVE: The patient is doing a little better. Discussed with Dr. Santhosh Contreras. The patient has sick sinus pauses, currently in sinus. He started on low dose of beta blockers as well as Eliquis. The patient improving gastroenteritis symptoms. PHYSICAL EXAMINATION: Vital signs: Temperature is 98 degrees, vitals are stable. HEENT: Within normal limits. Neck: Supple. Chest: Clear. Cardiac: Heart sounds are regular. Abdomen: Belly is soft, nontender. Extremities: No edema. INVESTIGATIONS: CBC: White cell count 4.3, hematocrit 33, platelets 195,000. SMA-7: Sodium 142, potassium 4.6, chloride 114, BUN 21, creatinine 1.2. Urinalysis is clear. Urine cultures are negative. ASSESSMENT AND PLAN: 1. Sick sinus syndrome, paroxysmal atrial fibrillation. Inspector Shells opinion as per Dr. Contreras. In the meantime, continue on beta-blockers. 2. Eliquis. 3. Decrease IV fluids. 4. Discontinue Silva. 5. Prerenal failure, improved. 6. Hyperkalemia, improved and OFF Cardizem drip. 7. Slowly reconcile home medications. LEVEL OF DOCUMENTATION: 25 minutes. cc: Rick Polanco MD [facility]
[2018-03-05] MEDS: HUMULIN R SUBQ SCH ×3 (06:01→21:17)
[2018-03-05] MEDS ORDERED: NEURONTIN PO SCH (09:00)
[2018-03-05] MEDS: LOPRESSOR PO SCH ×2 (09:28→21:11)
[2018-03-05] MEDS: MUCINEX PO SCH ×2 (09:28→21:11)
[2018-03-05] MEDS: ARIMIDEX PO SCH (09:28)
[2018-03-05] MEDS: PRINIVIL PO SCH (09:29)
[2018-03-05] MEDS: ULTRACET 37.5MG/325MG PO SCH ×4 (09:29→21:11)
[2018-03-05] MEDS: NORVASC PO SCH (09:29)
[2018-03-05] MEDS: LIPITOR PO SCH (09:29)
[2018-03-05] MEDS: CALTRATE 600 PO SCH (09:29)
[2018-03-05] MEDS: CENTRUM TABLET PO SCH (09:29)
[2018-03-05] MEDS: FOLIC ACID PO SCH ×2 (09:30→17:14)
[2018-03-05] MEDS: CULTURELLE PO SCH (09:30)
[2018-03-05] MEDS: ELIQUIS PO SCH ×2 (09:30→21:11)
[2018-03-05] MEDS: VITAMIN D PO SCH (09:30)
[2018-03-05] MEDS: PROTONIX IV SCH (16:24)
[2018-03-05] MEDS: NS 1,000 ML IV SCH (16:24)
[2018-03-05] MEDS: TRICOR PO SCH (21:11)
[2018-03-05] MEDS: NEURONTIN PO SCH (21:11)
--- NOTE | 2018-03-06 02:57 | PROGRESS NOTE ---
DATE: 03/05/2018 SUBJECTIVE: The patient is a little better and the Silva was taken out. Decreased IV fluids. No GI symptoms. media monitor in sinus, no pauses noted. REVIEW OF SYSTEMS: None reported. OBJECTIVE: Vital Signs: Temperature is 98 degrees. Vitals are stable. HEENT: Within normal limits. Neck: Supple. No lymphadenopathy. Chest: Bilateral air entry. Heart: Sounds are regular. Abdomen: Belly is soft, nontender. No obvious deficits noted. ASSESSMENT AND PLAN: 1. Acute kidney injury, improving. 2. Gastroenteritis, better. 3. Paroxysmal atrial fibrillation, sinus pause. Continue on Eliquis 2.5 p.o. b.i.d., metoprolol 12.5 b.i.d. 4. Atrial fibrillation. Eliquis 2.5 p.o. b.i.d. Continue intravenous Protonix, probiotics. 5. Upper respiratory symptoms. The patient was started on guaifenesin. 6. History of breast cancer on Arimidex. 7. Reconcile home medications. 8. Encouraged the patient for ambulation with assistance. LEVEL OF DOCUMENTATION: 25 minutes. cc: Rick Polanco MD
--- NOTE | 2018-03-06 04:41 | CARDIOLOGY PROGRESS NOTE ---
DATE: 03/05/2018 SUBJECTIVE: Ms. Weldon reports no issues overnight. PHYSICAL EXAMINATION: Vital Signs: She is afebrile. Heart rate is 64, blood pressure 154/59. Her systolics have been quite elevated over the last several checks, being anywhere from the 150s to 180s predominantly. General: She is in no acute distress. Cardiovascular: She sounds to be in a regular rate and rhythm. Telemetry currently shows she is in sinus rhythm. Chest: Examination is clear bilaterally. She has no increased work of breathing. Gastrointestinal: Her abdomen is soft, nontender. PERTINENT DATA: She has no new lab data today. ASSESSMENT: Ms. Weldon is an 83-year-old female who presented with bradycardia, likely due to acute kidney injury and hyperkalemia. She since has had an episode of atrial fibrillation and on conversion, had a sinus pause. PLAN: Her blood pressure medicines have been adjusted by Dr. Polanco. I have no further recommendations. She will receive an outpatient LOLY for 1 month to evaluate for episodes of significant bradycardia or pauses. I have initiated apixaban at a dose of 2.5 b.i.d. based on her age and weight. She may follow up as an outpatient. Please contact us if we can be of further assistance with this patient. cc: MD Rick Moura MD MTDD
[2018-03-06] MEDS: HUMULIN R SUBQ SCH ×4 (06:11→21:46)
[2018-03-06] MEDS: ULTRACET 37.5MG/325MG PO SCH ×4 (09:02→20:30)
[2018-03-06] MEDS: CENTRUM TABLET PO SCH (09:02)
[2018-03-06] MEDS: FOLIC ACID PO SCH (09:02)
[2018-03-06] MEDS: PRINIVIL PO SCH (09:02)
[2018-03-06] MEDS: NORVASC PO SCH (09:03)
[2018-03-06] MEDS: LOPRESSOR PO SCH ×2 (09:03→20:30)
[2018-03-06] MEDS: CULTURELLE PO SCH (09:03)
[2018-03-06] MEDS: NEURONTIN PO SCH ×3 (09:03→20:30)
[2018-03-06] MEDS: ARIMIDEX PO SCH (09:03)
[2018-03-06] MEDS: ELIQUIS PO SCH ×2 (09:04→20:30)
[2018-03-06] MEDS: VITAMIN D PO SCH (09:04)
[2018-03-06] MEDS: CALTRATE 600 PO SCH (09:04)
[2018-03-06] MEDS: LIPITOR PO SCH (09:04)
[2018-03-06] MEDS: MUCINEX PO SCH ×2 (09:04→20:30)
[2018-03-06] MEDS: NS 1,000 ML IV SCH (16:49)
[2018-03-06] MEDS: PROTONIX IV SCH (16:49)
[2018-03-06] MEDS: TRICOR PO SCH (20:30)
--- NOTE | 2018-03-07 00:41 | PROGRESS NOTE ---
DATE: 03/06/2018 SUBJECTIVE: The patient is doing a little better. OBJECTIVE: Vital Signs: Temperature is 98 degrees. Vitals are stable. HEENT: Within normal limits. Neck: Supple. Chest: Clear. Heart: Heart sounds are regular. Abdomen: Belly is soft, nontender. ASSESSMENT AND PLAN: 1. Acute kidney injury, improving. 2. Hyperkalemia, better. 3. Paroxysmal atrial fibrillation, with sinus pauses. Asymptomatic. Continue outpatient 30-day loop monitor and reconcile home medicines. We will discharge in the morning with a 30-day loop monitor, and follow up as an outpatient. Continue present medical therapy. LEVEL OF DOCUMENTATION: 15 minutes. cc: Rick Polanco MD
[2018-03-07] MEDS: HUMULIN R SUBQ SCH (06:16)
[2018-03-07 07:41] VITALS: BP 170/62
[2018-03-07] MEDS: LIPITOR PO SCH (08:47)
[2018-03-07] MEDS: LOPRESSOR PO SCH (08:47)
[2018-03-07] MEDS: CULTURELLE PO SCH (08:47)
[2018-03-07] MEDS: NORVASC PO SCH (08:47)
[2018-03-07] MEDS: FOLIC ACID PO SCH (08:47)
[2018-03-07] MEDS: ULTRACET 37.5MG/325MG PO SCH (08:47)
[2018-03-07] MEDS: MUCINEX PO SCH (08:47)
[2018-03-07] MEDS: NEURONTIN PO SCH (08:47)
[2018-03-07] MEDS: ELIQUIS PO SCH (08:47)
[2018-03-07] MEDS: VITAMIN D PO SCH (08:47)
[2018-03-07] MEDS: CALTRATE 600 PO SCH (08:47)
[2018-03-07] MEDS: CENTRUM TABLET PO SCH (08:48)
[2018-03-07] MEDS: PRINIVIL PO SCH (08:48)
[2018-03-07] MEDS: ARIMIDEX PO SCH (08:48)
--- NOTE | 2018-03-09 00:14 | DISCHARGE SUMMARY ---
ADMISSION DATE: 03/01/2018 DISCHARGE DATE: 03/07/2018 DISCHARGE DIAGNOSIS: Acute kidney injury due to dehydration with hyperkalemia. SECONDARY DIAGNOSES: 1. Sick sinus syndrome with atrial fibrillation. 2. Coronary artery disease with bare metal stent in the circumflex artery and the left anterior descending. 3. Hyperlipidemia. 4. Osteoporosis. 5. Acid reflux disease. 6. Rheumatoid arthritis. 7. Atrophic vaginitis with recurrent urinary tract infection. 8. Breast cancer on the left side. CONSULTANTS: Dr. Santhosh Contreras. BRIEF HISTORY: In brief, she is an 83-year-old white female who was admitted directly [facility] with 3-day history of gastroenteritis symptoms, nausea, vomiting, diarrhea. The patient continues to take her medication. X-rays revealed no bowel obstruction. Scoliosis of the lumbar spine noted, calcified right upper lobe granuloma. Labs showed creatinine 4.6, potassium 7.3. The patient was admitted directly to the floor, and I was there at the time of admission. Potassium 7.3. EKG showed junctional bradycardia. The patient was given IV calcium gluconate, D5, followed by 10 units of regular insulin, Kayexalate 30 mg, high dose of beta-2 agonists. Subsequently, heart rate went to 120. Followup hydration renal function test, potassium came back normal. However, the patient developed rapid atrial fibrillation requiring Cardizem drip. Transferred to the [facility]. In the [facility] on the monitor, the patient had shown sinus pauses 5 seconds x3. The patient was asymptomatic and converted to sinus. Marine Water Tender opinion was discussed. In the mean time, they want to continue on the 30-day loop monitor. The patient came back to the baseline. Tolerating the diet very well. Rest of the hospital course was uneventful. LABORATORIES AT TIME OF DISCHARGE: CBC: White cell count 4.3, hematocrit 33, platelets 195,000. SMA-7: Sodium 142, potassium 4.6, chloride 114, BUN 20, creatinine 1.2, glucose 117. DISCHARGE INSTRUCTIONS: 1. Outpatient 30-day loop monitor. 2. Lisinopril 10 daily, amlodipine 10 daily, Protonix 40 daily, Neurontin 300 t.i.d., folic acid 1 mg daily, prednisone 5 mg as directed by Dr. Raman, Ultracet 1 tablet t.i.d., metoprolol 25 p.o. b.i.d., nitroglycerin as needed, potassium is stopped, Actonel 150 once a month, calcium 600 daily, vitamin D3 5000 units daily, TriCor 40 daily, multivitamin 1 tablet daily, Lipitor 40 daily, anastrozole 1 mg daily. Eliquis 2.5 p.o. b.i.d., new medicine added by Dr. Contreras for the atrial fibrillation. 3. Continue outpatient followup. 4. Followup in my office in 2 weeks. cc: MD Santhosh Gilliam MD
== END 2018-03-07 11:42 | disposition home or self-care (01) | DRG 641 ==
LOC: DIRADM 13:09 → 3N 13:40 → 3S 03-03 06:06
PROVIDERS: ADMIT Internal Medicine; ATTEND Internal Medicine
CPT/HCPCS: 80048; 81001; 82948; 84443; 85025; 87088; 93005; 93010; 93306; 94640; 94761; A9270; C9113; J0610; J1815; J2405; J7030; S0164; S0170; XXXXX

== ENCOUNTER 2019-04-15 20:28 | Inpatient (IN) ==
--- NOTE | 2019-04-15 21:17 | Diag Imaging Result Doc PS360 ---
EXAM: CT HEAD W/O CONTRAST INDICATION: ams TECHNIQUE: This exam was performed using automated exposure control, adjustment of mA or kV according to patient size, and/or use of iterative reconstruction technique. COMPARISON: 02/11/2019 FINDINGS: There is stable encephalomalacia involving the left occipital lobe. However, there is new encephalomalacia that has developed since the previous study in the right occipital lobe. There is no definite acute infarct given the limited sensitivity of CT versus MRI. There is increased density involving the distal vertebral arteries and proximal basilar artery. This could be an artifact. However, thrombus in the distal vertebral arteries and basilar artery is not excluded. Note that this can be seen but to a lesser degree on the previous study. There is no discrete intracranial mass, mass effect, or intracranial hemorrhage. The surrounding soft tissues and bony structures are essentially unremarkable. IMPRESSION: 1.Bilateral occipital encephalomalacia with the encephalomalacia on the right being new since the previous study. 2.Hypodense distal vertebral and proximal basilar arteries. Although this could be an artifact, vascular thrombus is not excluded. If so, this could have contributed to the new encephalomalacia involving the right occipital lobe. 3.No definite acute infarct is identified given the limitations of CT versus MRI. Electronically signed by Bjorn Kirk 04/15/2019 9:15 PM
[2019-04-15 21:30] LABS: EOS# 0.51 X1000 (0.0-0.7)
[2019-04-15 21:36] LABS: BASO# 0.02 X1000 (0.0-0.2); BASO% 0.4 % (0.0-0.8); EOS% 10.8 % (0.0-10.0); HEMATOCRIT 40.1 % (37.0-47.0); HEMOGLOBIN 13.5 g/dL (12.0-16.0); LYMPH% 40.3 % (20.5-51.1); MCH 30.7 PG (27-31); MCHC 33.7 g/dL (33-37); MCV 91.1 FL (81-99); MONO# 0.39 X1000 (0.11-0.59); MONO% 8.3 % (1.7-9.3); MPV 12.3 FL (7.4-10.4); NEUT# 1.89 X1000 (1.4-6.5); NEUT% 40.2 % (42.2-75.2); PLT 178 X1000 (130-400); RDW 13.4 % (11.5-14.5); WBC 4.71 X1000 (4.8-10.8)
--- NOTE | 2019-04-15 21:42 | PROVIDER DOCUMENTATION ---
HPI-Neurological Disorder - General Chief Complaint: Altered Mental Status Stated Complaint: DIZZINESS Time Seen by Provider: 04/15/19 20:46 Source: patient, EMS Allergies/Adverse Reactions: Patient Allergies Allergy/AdvReac Type Severity Reaction Status Date / Time codeine [Codeine] Allergy Severe SWELLING Verified 02/19/19 08:20 chlorhexidine [From Peridex] AdvReac blistered Verified 02/19/19 08:20 tongue Sulfa (Sulfonamide AdvReac NAUSEA/VOMI Verified 02/19/19 08:20 Antibiotics) TING Home Medications: Home Medication List Medication Instructions Recorded Confirmed Last Taken Type Amlodipine Besylate 10 mg PO DAILY 10/13/11 02/19/19 03/01/18 History Folic Acid 1 mg PO DAILY 10/13/11 02/19/19 08/02/17 History Gabapentin 300 mg PO TID 10/13/11 02/19/19 03/01/18 History LISINOpril [Prinivil] 10 mg PO DAILY 10/13/11 02/19/19 03/01/18 History Pantoprazole Sodium 40 mg PO DAILY 10/13/11 02/19/19 03/01/18 History Prednisone 5 mg PO DIRECTED 10/13/11 02/19/19 02/28/18 History Tramadol HCl/Acetaminophen 1 tab PO 4XDAY 10/13/11 02/19/19 03/01/18 History [Tramadol-Acetaminophn 37.5-325] Metoprolol [Lopressor] 25 mg PO BID 10/19/15 02/19/19 03/01/18 History Nitroglycerin [Nitrostat] 0.4 mg SL PRN PRN 10/19/15 02/19/19 Unknown History Calcium Carbonate [Calcium] 600 mg PO DAILY 05/15/17 02/19/19 08/02/17 History Cholecalciferol (Vit D3) [Vitamin 5,000 unit PO DAILY 05/15/17 02/19/19 03/01/18 History D3] Risedronate Sodium [Actonel] 150 mg PO DIRECTED 05/15/17 02/19/19 03/01/18 History Fenofibrate Nanocrystallized 0 mg PO QHS 08/02/17 02/19/19 02/28/18 History [Tricor] Multivitamin/Iron/Folic Acid 1 each PO DAILY 08/02/17 02/19/19 03/01/18 History [Multivitamin with Iron Tablet] Anastrozole 1 mg PO DAILY 03/01/18 02/19/19 03/01/18 History Atorvastatin Calcium 40 mg PO DAILY 03/01/18 02/19/19 03/01/18 History Folic Acid 1 mg PO DAILY 03/01/18 02/19/19 03/01/18 History Methocarbamol [Robaxin] 500 mg PO TID #30 tab 04/28/18 02/19/19 Unknown Rx Ciprofloxacin HCl 500 mg PO BID #10 tab 02/11/19 02/19/19 Unknown Rx - History of Present Illness-Neuro Nature of Presenting Problem: Patient is a 84 year old white female with history of TIAs who presents by EMS for evaluation of altered 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 Upon arrival, patient is improved in mental functioning but not at her baseline. De nies chest pain or SOB. Onset/Duration: reports: abrupt Timing: reports: gone now Context: reports: other (decreased mentation and responsiveness) Character of Altered Mental Status: reports: confused, decreased responsiveness Any recent trauma/injury?: reports: none New weakness or altered sensation location:: reports: none Cognitive Baseline: alert, oriented x3 Associated Symptoms: denies: headache, chest pain, fever/chills, nausea, numbness in legs/feet, diaphoretic Similar Symptoms Previously?: Yes Recently seen or treated by another doctor?: No - Seizure First time to have a seizure?: No Witnessed seizure?: No Review of Systems - Adult - REVIEW OF SYSTEMS - ADULT Constitutional: denies: chills, fever Eyes: reports: no symptoms reported Ears, Nose, Mouth & Throat: reports: no symptoms reported Cardiovascular: denies: chest pain Respiratory: reports: no symptoms reported Gastrointestinal: denies: abdominal pain, nausea, vomiting Genitourinary: reports: no symptoms reported Musculoskeletal: reports: no symptoms reported Integumentary: reports: no symptoms reported Neurological: reports: see HPI Psychiatric: reports: see HPI Endocrine: reports: no symptoms reported Hematologic/Lymphatic: reports: no symptoms reported Allergic/Immunologic: reports: no symptoms reported All Other Systems: Reviewed and Negative Past History - Adult - PAST MEDICAL HISTORY-ADULT Review of Records: reports: Old Records Reviewed, Nursing Assessment Review, Medications Reviewed, Social history reviewed & non-contributory. Cardiovascular: reports: denies history Respiratory: reports: denies history Gastrointestinal: reports: denies history Obstetrical/Gynecological: reports: denies history Genitourinary: reports: denies history, cancer Musculoskeletal: reports: denies history Neurological: reports: denies history Psychiatric: reports: denies history Endocrine/Immune: reports: denies history - PRIOR SURGERIES/PROCEDURES Surgical/Procedure History: reports: none - FAMILY HISTORY Family History: reviewed, not pertinent Physical Exam- Neurological - Physical Exam-Neuro General Appearance: alert, no apparent distress Eye Exam: bilateral eye: PERRL, EOMI HENMT: moist mucous membranes Head Injury: active bleeding Neck: supple Respiratory: lungs clear Cardiovascular: regular rate, rhythm Abdominal Exam: non tender, soft Lymphatic: no adenopathy Peripheral Pulses: radial (R): 2+, radial (L): 2+ Motor/Sensory: no motor deficit, no sensory deficit Neurologic: grossly normal, no motor/sensory deficits Psych/Mental Status: oriented x 3, anxious, other (DEMENTED) - Glascow Coma Scale Best Eye Response: (4) open spontaneously Best Verbal Response: (5) oriented Best Motor Response: (6) obeys commands Progress - PLAN OF CARE/RESULTS Progress/Plan/Lab Results: Vital Signs - 8 hr 04/15/19 20:28 Temperature 98.5 F Pulse Rate 87 Respiratory Rate 20 Blood Pressure 185/85 O2 Sat by Pulse Oximetry 100 Laboratory Results - last 24 hr 04/15/19 04/15/19 04/15/19 20:50 20:53 20:53 WBC 4.71 L RBC 4.40 Hgb 13.5 Hct 40.1 MCV 91.1 MCH 30.7 MCHC 33.7 RDW Std Deviation 13.4 Plt Count 178 MPV 12.3 H Immature Gran % (Auto) 0.0 Neut % (Auto) 40.2 L Lymph % (Auto) 40.3 [place] % (Auto) 8.3 Eos % (Auto) 10.8 H Baso % (Auto) 0.4 Immature Gran # (Auto) 0.00 Neut # (Auto) 1.89 Lymph # (Auto) 1.90 [place] # (Auto) 0.39 Eos # (Auto) 0.51 Baso # (Auto) 0.02 Sodium 139 Potassium 3.9 Chloride 101 Carbon Dioxide 22 L Anion Gap 16 BUN 21 Creatinine 1.1 H Estimated GFR/1.73 m2 48 BUN/Creatinine Ratio 19 Glucose 119 H POC Glucose 120 H D Calculated Osmolality 282 Calcium 9.8 Urine Source Urine Color Urine Turbidity Urine pH Ur Specific [place] Urine Protein Ur Glucose (Stick) Ur Ketones (Stick) Urine Blood Urine Nitrite Urine Bilirubin Urobilinogen Dipstick Urine Leukocytes Urine WBC (Auto) Urine RBC (Auto) U Epithel Cells (Auto) Urine Bacteria (Auto) Urine Crystals Small Round Cells Urine Casts Urine Yeast-like Cells 04/15/19 23:03 WBC RBC Hgb Hct MCV MCH MCHC RDW Std Deviation Plt Count MPV Immature Gran % (Auto) Neut % (Auto) Lymph % (Auto) [place] % (Auto) Eos % (Auto) Baso % (Auto) Immature Gran # (Auto) Neut # (Auto) Lymph # (Auto) [place] # (Auto) Eos # (Auto) Baso # (Auto) Sodium Potassium Chloride Carbon Dioxide Anion Gap BUN Creatinine Estimated GFR/1.73 m2 BUN/Creatinine Ratio Glucose POC Glucose Calculated Osmolality Calcium Urine Source CLEAN CATCH Urine Color YELLOW Urine Turbidity HAZY Urine pH 6.5 Ur Specific [place] 1.012 Urine Protein NEGATIVE Ur Glucose (Stick) NEGATIVE Ur Ketones (Stick) NEGATIVE Urine Blood NEGATIVE Urine Nitrite NEGATIVE Urine Bilirubin NEGATIVE Urobilinogen Dipstick NORMAL Urine Leukocytes MODERATE A Urine WBC (Auto) 10-20 A Urine RBC (Auto) 10-20 A U Epithel Cells (Auto) <10 Urine Bacteria (Auto) NEGATIVE Urine Crystals NONE SEEN Small Round Cells NONE SEEN Urine Casts NONE SEEN Urine Yeast-like Cells NONE SEEN Orders Category Date Time Status CT HEAD W/O CONTRAST [CT] Stat Exams 04/15/19 20:46 Completed BMP [BASIC METABOLIC PANEL] [CHEM] Stat Lab 04/15/19 20:53 Completed CBC WITH ELECTRONIC DIFF [HEME] Stat Lab 04/15/19 20:53 Completed URINALYSIS W/POSS RFLX CULT [URINALYSIS] Stat Lab 04/15/19 23:03 Completed URINE CULTURE [RM] Routine Lab 04/15/19 23:03 Received URINE MANUAL MICROSCOPIC [URINALYSIS] Stat Lab 04/15/19 23:03 Completed Aspirin Med 04/15/19 22:37 Discontinued 81 mg PO NOW ONE CefTRIAXONE [Rocephin] 1 gm Med 04/15/19 23:37 Active 0.9% Sodium Chloride Inj [Ns] 50 ml IV NOW Result Diagrams: 04/15/19 20:53 04/15/19 20:53 - CONSULTS/PCP/HOSPITALIST Notification #1 *Consult/PCP/Hospitalist*: Dr. Zamarripa,hospitalist Time Discussed: 23:35 Consult Disposition: Admit Departure - Departure Date of Disposition Decision: 04/15/19 Time of Disposition Decision: 23:41 DIAGNOSIS: Encephalomalacia on imaging study Altered mental status Qualifiers: Altered mental status type: unspecified Qualified Code(s): R41.82 - Altered mental status, unspecified UTI (urinary tract infection) Qualifiers: Urinary tract infection type: site unspecified Hematuria presence: with hematuria Qualified Code(s): N39.0 - Urinary tract infection, site not specified Disposition: HOME 01 Certified Medical Emergency: Emergent Condition: Stable Referrals and Follow-Ups: Marc Polanco MD [Primary Care Provider] - - Critical Care Note This patient required my direct & personal management of CC.: No Attestation - Physician/ CHANDRAKANT Attestation Patient care was provided by Advanced Practice Provider:: No The physician spent face to face time with patient:: Yes Advanced Practice Provider documentation review:: Supervising physician onsite and consulted in the evaluation and care of this patient. The physician did have a face to face encounter with the patient. - NIH Stroke Scale Level of Consciousness: 0-Alert LOC Questions (ask month and age): 0-Answers Both Correctly LOC Commands (ask to open & close eyes;make a fist, let go): 0-Obeys Both Correctly Best Gaze (horizontal eye movement): 0-Normal Visual (use finger movement, counting or visual threat): 0-No Visual Loss Facial Palsy (show teeth or raise eyebrows & close eyes tght: 0-Symmetrical Movement Motor Function-left arm: 0-Normal Motor Function-right arm: 0-Normal Motor Function-left le-Normal Motor Function-right le-Normal Limb Ataxia([id number], or heel to dobbs): 0-No Ataxia Sensory(pin prick to face,arms,trunk,legs-compare side/side): 0-No Ataxia Best Language(name item/read sentence.Ex-Down to Earth): 0-No Aphasia Dysarthria(Pt read words or say words Ex.Mama,Tip-Top,Thanks: 0-Normal Articulation Extinction and Inattention: 0-Normal NIH Total Score: 0
[2019-04-15 21:46] LABS: CALCIUM 9.8 mg/dL (8.8-10.2); CREATININE 1.1 mg/dL (0.5-0.9); POTASSIUM 3.9 mmol/L (3.5-5.1)
[2019-04-15] MEDS ORDERED: ASPIRIN PO ONE (22:37)
[2019-04-15 23:11] LABS: URINE SOURCE CLEAN CATCH
[2019-04-15 23:16] LABS: BILIRUBIN URINE NEGATIVE (NEGATIVE); BLOOD URINE NEGATIVE (NEGATIVE); COLOR YELLOW; GLUCOSE URINE NEGATIVE (NEGATIVE); KETONE URINE NEGATIVE (NEGATIVE); LEUKOCYTES URINE MODERATE (NEGATIVE); NITRITE URINE NEGATIVE (NEGATIVE); PH URINE 6.5; PROTEIN URINE NEGATIVE (NEGATIVE); SP GRAVITY URINE 1.012; TURBIDITY URINE HAZY (CLEAR); UROBILINOGEN URINE NORMAL (NORMAL)
[2019-04-15 23:29] LABS: UR EPITHELIAL CELLS <10 /HPF (<10); URINE BACTERIA NEGATIVE /HPF
[2019-04-15 23:33] LABS: URINE CASTS NONE SEEN; URINE CRYSTALS NONE SEEN; URINE SMALL ROUND CELLS NONE SEEN; URINE YEAST NONE SEEN
[2019-04-15] MEDS ORDERED: ROCEPHIN 1 GM in NS 50 ML IV ONE (23:37)
[2019-04-16] MEDS ORDERED: NITROGLYCERIN SL PRN (03:08)
[2019-04-16] MEDS ORDERED: RISEDRONATE SODIUM 150 MG PO SCH (03:08)
[2019-04-16] MEDS: NS 1,000 ML IV SCH ×2 (05:58→22:24)
[2019-04-16] MEDS: PRILOSEC PO SCH (06:01)
--- NOTE | 2019-04-16 07:31 | HISTORY AND PHYSICAL ---
CHIEF COMPLAINT: Altered mental status. HISTORY OF PRESENT ILLNESS: Ms. Naa Weldon is an 84-year-old female with a history of previous CVA, hypertension, rheumatoid arthritis, coronary artery disease, as well as gastroesophageal reflux disease. The patient presents to the hospital because of altered mental status, which was first noticed prior to admission. No history could be obtained from the patient. Head CT done at the time of presentation showed evidence of bilateral occipital encephalomalacia, with the encephalomalacia on the right being new since the previous study. There is also mention of hypotense distal vertebral as well as proximal basilar arteries. Urinalysis done at the time of her presentation showed a picture of possible urinary tract infection with a moderate amount of leukocytes and 10 to 20 WBCs per high-power field. The patient is admitted to the floor now for further management. PAST MEDICAL HISTORY: CVA, coronary artery disease with bare-metal stents to circumflex artery and also LAD, hyperlipidemia, osteoporosis, gastroesophageal reflux disease, rheumatoid arthritis, history of herpes zoster, history of breast cancer (left breast). SOCIAL HISTORY: No history of cigarette smoking. No alcohol or drug use. ALLERGIES: She is allergic to codeine, aspirin, chlorhexidine, sulfa. FAMILY HISTORY: Positive for hypertension as well as coronary disease. PAST SURGICAL HISTORY: She has had left mastectomy, cholecystectomy, hysterectomy, bladder surgery, as well as right hip surgery. HOME MEDICATIONS: Include the following: Amlodipine 10 mg p.o. daily, folic acid 1 mg p.o. daily, gabapentin 300 mg p.o. 3 times a day, lisinopril 10 mg p.o. daily, pantoprazole 40 mg p.o. daily, prednisone 5 mg p.o. as directed, tramadol/acetaminophen 37.5/325 one tablet four times a day, metoprolol 25 mg p.o. twice a day, Nitrostat 0.4 mg sublingual p.r.n., calcium carbonate 600 mg p.o. daily, vitamin D 5000 units p.o. once a day, Actonel 115 mg p.o. as directed, fenofibrate as directed, multivitamin 1 daily, anastrazole 1 mg p.o. daily, atorvastatin 40 mg p.o. daily, folic acid 1 mg p.o. daily, Robaxin 500 mg p.o. 3 times a day, Cipro 500 mg p.o. twice a day. REVIEW OF SYSTEMS: Constitutional: No fever. 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 Eyes: Has vision impairment. ENT: No sinus problems. Cardiovascular: No chest pain. Respiratory: No cough. GI: No nausea, vomiting, diarrhea. : No dysuria. Musculoskeletal: Has joint pain. Dermatology: Has history of melanomas. Hematology: No bleeding problems. Psychiatric: No anxiety or depression. Allergy/Hematology: No symptoms suggestive of allergic rhinitis. PHYSICAL EXAMINATION: VITAL SIGNS: Temperature is 98.5 degrees, pulse 87, respirations 20, blood pressure 185/85, oxygen saturation is 100%. HEENT: Atraumatic, normocephalic. She is anicteric. No oral lesions noted. NECK: No lymphadenopathy or thyromegaly. CARDIOVASCULAR: S1, S2. RESPIRATORY: Has evidence of good air entry bilaterally. ABDOMEN: Soft, nontender. No masses felt. EXTREMITIES: No evidence of edema. CENTRAL NERVOUS SYSTEM: No obvious focal deficits noted. IMAGING AND LABORATORY DATA: WBC is 4.71, hematocrit 40.1, with a platelet count of 178,000. Sodium is 139, potassium 3.9, chloride is 101, bicarb 22, BUN is 21, creatinine is 1.1, glucose is 120. UA shows a moderate amount of leukocytes with 10 to 20 WBCs per high-power field. CT scan of the brain shows evidence of bilateral occipital encephalomalacia with the encephalomalacia on the right side being new since previous study. There is also hypotense distal vertebral and proximal basal arteries. ASSESSMENT AND PLAN: 1. Probable metabolic encephalopathy. This may be related to urinary tract infection. However, in light of abnormal head CT, will obtain an MRI as well as an MRA of the head. 2. Urinary tract infection. Obtain urine culture and blood cultures. Maintain the patient on antibiotics. 3. History of cerebrovascular accident. Maintain the patient on aspirin as well as statin. Recommend physical therapy. 4. History of coronary artery disease. Asymptomatic. Maintain the patient on telemetry. Maintain the patient on aspirin, beta-dawit, statin. 5. Hypertension. Optimize blood pressure control. 6. History of rheumatoid arthritis. Aware. 7. Gastroesophageal reflux disease. Maintain the patient on proton pump inhibitor. 8. History of breast cancer. Aware. Continue Arimidex. 9. Deep vein thrombosis prophylaxis. Sequential compression devices. 10. Gastrointestinal prophylaxis. Proton pump inhibitor. cc: MD Rick Ardon MD
--- NOTE | 2019-04-16 08:34 | EKG Report ---
Test Performed on : 04/15/2019 8:45:37 PM Test Reason : ED. NO EKG ORDER FOR MUSE Blood Pressure : / mmHG Vent. Rate : 059 BPM Atrial Rate : 059 BPM P-R Int : 152 ms QRS Dur : 078 ms QT Int : 436 ms P-R-T Axes : 032 -30 055 degrees QTc Int : 431 ms Sinus bradycardia. Left axis deviation Inferior-posterior infarct , age undetermined Abnormal ECG When compared with ECG of 11-FEB-2019 11:52, Inferior-posterior infarct is now present Unconfirmed Result
--- NOTE | 2019-04-16 08:54 | Diag Imaging Result Doc PS360 ---
EXAM: MRI BRAIN W/WO CONTRAST INDICATION: ams COMPARISON: CT head dated 04/15/2019 and MRI brain dated 07/29/2018 FINDINGS: There is no evidence of acute infarct. There is left occipitotemporal encephalomalacia and mild right parietal encephalomalacia that is stable as compared to the previous study. There is new encephalomalacia as compared to the previous MRI involving the right occipital lobe that extends slightly into the medial temporal lobe. There is no discrete intracranial mass, mass effect, or intracranial hemorrhage. There is no evidence of abnormal intracranial enhancement. There is a small left sphenoid sinus mucus retention cyst. Surrounding soft tissues and bony structures are essentially unremarkable, otherwise. IMPRESSION: Bilateral occipitotemporal encephalomalacia as described. No evidence of acute intracranial pathology. Electronically signed by Bjorn Kirk 04/16/2019 8:52 AM
[2019-04-16] MEDS: ARIMIDEX PO SCH (09:18)
[2019-04-16] MEDS: CENTRUM TABLET PO SCH (09:19)
[2019-04-16] MEDS: CALTRATE 600 PO SCH (09:19)
[2019-04-16] MEDS: FOLIC ACID PO SCH (09:20)
[2019-04-16] MEDS: LIPITOR PO SCH (09:20)
[2019-04-16] MEDS: PRINIVIL PO SCH (09:21)
[2019-04-16] MEDS: LOPRESSOR PO SCH ×2 (09:21→22:24)
[2019-04-16] MEDS: VITAMIN D PO SCH (09:21)
[2019-04-16] MEDS: NORVASC PO SCH (09:21)
[2019-04-16] MEDS: ASPIRIN PO SCH (09:22)
--- NOTE | 2019-04-16 09:39 | Diag Imaging Result Doc PS360 ---
EXAM: MRA BRAIN W/O CONTRAST INDICATION: ams TECHNIQUE: Thin section 3-D [id number] images and 3-D MIPS were obtained. COMPARISON: CT head dated 04/15/2019. No prior MRA brain is available for comparison. FINDINGS: Hyperdensity seen in the distal vertebral arteries and proximal basilar artery on the recent CT had was apparently an artifact as the distal vertebral arteries and the basilar artery are widely patent. Both the right and left posterior cerebral arteries appear somewhat truncated suggesting stenosis distally, which would correspond to the occipitotemporal encephalomalacia seen on recent studies. The anterior cerebral arteries and middle cerebral arteries appear to be patent throughout the courses with no flow-limiting stenosis. No vascular malformations or cerebral aneurysms are appreciated. IMPRESSION: 1.Widely patent distal vertebral arteries and basilar artery indicating that the hyperdensity seen on the recent CT with an artifact. 2.Truncated posterior cerebral arteries bilaterally suggesting distal stenosis, which would be in keeping with the bilateral encephalomalacia seen on recent studies. Electronically signed by Bjorn Kirk 04/16/2019 9:36 AM
[2019-04-16] MEDS: ROCEPHIN 1 GM in NS 50 ML IV SCH (22:22)
[2019-04-17] MEDS: PRILOSEC PO SCH (06:39)
[2019-04-17] MEDS ORDERED: LOVENOX SUBQ SCH (09:00)
[2019-04-17] MEDS ORDERED: ZOFRAN IV PRN (09:56)
[2019-04-17] MEDS: FOLIC ACID PO SCH (10:15)
[2019-04-17] MEDS: LOPRESSOR PO SCH ×2 (10:15→21:21)
[2019-04-17] MEDS: CENTRUM TABLET PO SCH (10:15)
[2019-04-17] MEDS: VITAMIN D PO SCH (10:15)
[2019-04-17] MEDS: PRINIVIL PO SCH (10:16)
[2019-04-17] MEDS: ASPIRIN PO SCH (10:16)
[2019-04-17] MEDS: LIPITOR PO SCH (10:16)
[2019-04-17] MEDS: CALTRATE 600 PO SCH (10:16)
[2019-04-17] MEDS: NORVASC PO SCH (10:16)
[2019-04-17] MEDS: ARIMIDEX PO SCH (10:16)
[2019-04-17] MEDS ORDERED: PANTOPRAZOLE SODIUM 40 MG PO SCH (11:30)
[2019-04-17] MEDS: NEURONTIN PO SCH ×2 (12:44→21:21)
--- NOTE | 2019-04-17 18:29 | PROGRESS NOTE ---
DATE: 04/17/2019 SUBJECTIVE: This is an 84-year-old white female admitted to the hospital with altered mental status and possible stroke. I did review the H and P yesterday by the hospitalist. I saw the patient yesterday and today. Family was very attentive. I did not see any evidence of focal symptoms or signs. The patient is going to the bathroom. She complains of foot pain. Daughter wants to rule out a circulation problem. She also wants to go for rehab placement. PAST MEDICAL HISTORY: Reviewed. PAST SURGICAL HISTORY: Reviewed. MEDICATIONS: Reviewed. ALLERGIES: Sulfa drugs. PHYSICAL EXAMINATION: Vital Signs: Temperature is 98.3, pulse is 62, blood pressure is 177/54, 95% on room air. HEENT: Within normal limits. Neck: Supple. Chest: Clear. Cardiovascular: Heart sounds are regular. Abdomen: Belly is soft, nontender. No obvious deficits noted. LABS: CBC: White cell count 4.7, hematocrit 40, platelets 178. Sodium 139, potassium 3.9, chloride 100, BUN 21, creatinine 1.1, glucose 120. Urinalysis is positive for infection by dipstick. Urine cultures: Mixed dianelys. Blood cultures are negative. EKG: Sinus bradycardia, nothing acute. MRI of the brain: Bilateral occipitotemporal encephalomalacia, no evidence of acute intracranial pathology. No evidence of acute infarct. MRA of the brain: Widely patent distal vertebral arteries and basilar arteries. Some distal stenosis of the posterior cerebral arteries. ASSESSMENT AND PLAN: 1. Altered mental status, better, ruled out stroke. 2. Bilateral foot pain with decreased pulses. Will check DENTON. 3. History of breast cancer on treatment with Arimidex. 4. Hyperlipidemia, on Lipitor. 5. Vitamin D deficiency, on replacement. 6. Folic acid deficiency, on replacement. Chronic neuropathy pain on Neurontin 300 in the morning, 600 at night. 7. Hypertension on Prinivil 10 mg daily, metoprolol 25 p.o. b.i.d. 8. Acid reflux disease on Prilosec. 9. Questionable UTI on IV ceftriaxone. 10. Follow up on Doppler studies. 11. Reconcile home medicines. 12. Mission Worker consult for rehab. 13. Decreased IV fluids to 50 mL/h. Advance the diet. Findings are reassuring. LEVEL OF DOCUMENTATION: Thirty-five minutes. cc: Rick Polanco MD
[2019-04-17] MEDS: NS 1,000 ML IV SCH (21:24)
[2019-04-17] MEDS: ROCEPHIN 1 GM in NS 50 ML IV SCH (22:07)
[2019-04-18] MEDS: PRILOSEC PO SCH (06:37)
[2019-04-18] MEDS: CALTRATE 600 PO SCH (09:32)
[2019-04-18] MEDS: FOLIC ACID PO SCH (09:32)
[2019-04-18] MEDS: PRINIVIL PO SCH (09:32)
[2019-04-18] MEDS: NORVASC PO SCH (09:32)
[2019-04-18] MEDS: VITAMIN D PO SCH (09:32)
[2019-04-18] MEDS: LIPITOR PO SCH (09:32)
[2019-04-18] MEDS: ARIMIDEX PO SCH (09:32)
[2019-04-18] MEDS: NEURONTIN PO SCH ×2 (09:32→20:49)
[2019-04-18] MEDS: LOPRESSOR PO SCH ×2 (09:32→20:48)
[2019-04-18] MEDS: CENTRUM TABLET PO SCH (09:32)
--- NOTE | 2019-04-18 11:08 | VASCULAR LAB ---
PROCEDURE NAME: Arterial Bilateral Legs - 04/17/2019 REFERRING PHYSICIAN: Dr. Polanco INTERPRETING PHYSICIAN: Dr. Keene LABOR AND DELIVERY REGISTERED NURSE: [place] INDICATION: The patient has leg pain. FINDINGS: The right AB index is 1.1, the left AB index is 1.1. The right toe pressure is 92 for a right toe to brachial index of 0.6. The left great toe pressure is 118, the left toe to brachial index is 0.74. There is pulsatile flow throughout with normal PVRs. INTERPRETATION: Normal resting lower extremity arterial study. This would not be consistent with claudication. cc: MD Rick Moe MD
--- NOTE | 2019-04-18 13:05 | PROGRESS NOTE ---
DATE: 04/18/2019 Ms. Weldon was admitted with acute mental status change. Her CT scan was unremarkable. She has a history of breast cancer, vitamin D deficiency. Her DENTON extremity arterial studies were negative. She is on IV ceftriaxone. Overall, condition is stable. She is waiting to go to rehab. cc: MD Rick Vasquez MD
[2019-04-18] MEDS: NS 1,000 ML IV SCH (16:53)
[2019-04-18] MEDS: ROCEPHIN 1 GM in NS 50 ML IV SCH (22:13)
[2019-04-19] MEDS: PRILOSEC PO SCH (06:04)
[2019-04-19] MEDS: NORVASC PO SCH (09:59)
[2019-04-19] MEDS: ARIMIDEX PO SCH (09:59)
[2019-04-19] MEDS: PRINIVIL PO SCH (09:59)
[2019-04-19] MEDS: CALTRATE 600 PO SCH (09:59)
[2019-04-19] MEDS: CENTRUM TABLET PO SCH (09:59)
[2019-04-19] MEDS: VITAMIN D PO SCH (09:59)
[2019-04-19] MEDS: FOLIC ACID PO SCH (09:59)
[2019-04-19] MEDS: LOPRESSOR PO SCH ×2 (09:59→21:28)
[2019-04-19] MEDS: NEURONTIN PO SCH ×2 (09:59→21:28)
[2019-04-19] MEDS: LIPITOR PO SCH (09:59)
--- NOTE | 2019-04-19 12:26 | PROGRESS NOTE ---
DATE: 04/19/2019 Ms. Weldon is stable. Blood cultures have been negative. Lungs are clear. Heart sounds are normal. She is alert. She is going to go to the rehab at [facility] tomorrow. -5 cc: MD Rick Vasquez MD
[2019-04-19] MEDS: NS 1,000 ML IV SCH (21:28)
[2019-04-19] MEDS: ROCEPHIN 1 GM in NS 50 ML IV SCH (22:05)
[2019-04-20] MEDS: PRILOSEC PO SCH (06:14)
[2019-04-20] MEDS: NS 1,000 ML IV SCH (06:14)
[2019-04-20 07:56] VITALS: BP 183/60
[2019-04-20] MEDS ORDERED: PREVNAR 13 IM ONE (08:31)
[2019-04-20] MEDS: CENTRUM TABLET PO SCH (08:39)
[2019-04-20] MEDS: VITAMIN D PO SCH (08:40)
[2019-04-20] MEDS: NEURONTIN PO SCH (08:40)
[2019-04-20] MEDS: PRINIVIL PO SCH (08:40)
[2019-04-20] MEDS: ARIMIDEX PO SCH (08:40)
[2019-04-20] MEDS: LOPRESSOR PO SCH (08:40)
[2019-04-20] MEDS: CALTRATE 600 PO SCH (08:40)
[2019-04-20] MEDS: LIPITOR PO SCH (08:40)
[2019-04-20] MEDS: NORVASC PO SCH (08:40)
[2019-04-20] MEDS: FOLIC ACID PO SCH (08:40)
--- NOTE | 2019-04-20 09:23 | DISCHARGE SUMMARY ---
ADMISSION DATE: 04/16/2019 DISCHARGE DATE: 04/20/2019 DISCHARGING DIAGNOSES: Altered mental status due to metabolic encephalopathy. SECONDARY DIAGNOSES: 1. Coronary artery disease with bare metal stent in the circumflex and left anterior descending. Hyperlipidemia. 2. Osteoporosis. 3. Rheumatoid arthritis. 4. Acid reflux disease. 5. History of breast cancer on the left side. 6. Sick sinus syndrome with atrial fibrillation, due to Hyperkalemia stable. 7. Cerebrovascular accident with bilateral occipital temporal encephalomalacia due to lacunar strokes. BRIEF HISTORY: Please see the H and P that was done by hospitalist. In brief, she is an 84-year- old white female who was admitted to the hospital with altered mental status and confusion. She has a prior history of strokes. During this hospital course, the patient had a CT head, MRI of the brain, and MRA. CT head showed encephalomalacia involving the left occipital lobe, and also in the right occipital lobe. The findings were corroborated on MRI with bilateral occipitotemporal encephalomalacia. No evidence of intracranial pathology. MRA of the brain revealed patent vessels. The patient was complaining of leg pains. Extremity arterial flow studies DENTON on the right side 1.1, left side is 1.1. Toe brachial index 0.6 on the right side, left side is 0.74. The rest of the hospital course was uneventful. The patient and family decided to go for [facility] for convalescence. LABORATORY: CBC: White cell count 4.7, hematocrit 40, and platelets 178,000. SMA 7 is normal. Urinalysis positive for infection. Blood cultures are mixed dianelys. The patient was given IV ceftriaxone. Blood cultures were negative. Chest x-ray was done on 02/11/2019, and is a negative exam. DISCHARGE INSTRUCTIONS: 1. Anastrozole 1 mg in the morning 2. Lipitor 40 daily. 3. Vitamin D 3 2000 units daily. Tricor 40 mg daily. 4. Lisinopril 10 mg in the morning. 5. Metoprolol 25 p.o. b.i.d. 6. Multivitamin 1 tablet daily. 7. Protonix 40 mg in the morning. 8. Amlodipine 10 daily 2 times a day. 9. Folic Acid 1 mg daily. 10. Robaxin 500 t.i.d. 11. Ultram 50 q.6 as needed for p.r.n. pain. 12. Actonel 150 mg in the morning. 13. Gabapentin 300 mg in the morning, 600 in the evening. 14. Aspirin 81 mg daily. FOLLOW UP: Follow up in my office next week. cc: Rick Polanco MD MTDD
--- NOTE | 2019-04-20 11:43 | Diag Imaging Result Doc PS360 ---
EXAM: CHEST-PORTABLE INDICATION: Rehab placement TECHNIQUE: One view COMPARISON: 02/11/2019 FINDINGS: There is evidence of prior granulomatous disease, stable. The lungs are grossly clear. There is no discrete pleural fluid collection or pneumothorax. The cardiomediastinal silhouette and central vasculature are grossly unremarkable. IMPRESSION: No evidence of acute pathology by plain radiograph. Electronically signed by Bjorn Kirk 04/20/2019 11:41 AM
== END 2019-04-20 12:50 | DRG 72 ==
LOC: ED 20:28 → 3N 04-16 02:17 → SUATTDRO 04-16 02:17
PROVIDERS: ADMIT Internal Medicine; ATTEND Internal Medicine